=== PATIENT | male | born 1975 | race Caucasian/White ===

== ENCOUNTER 2019-08-27 08:43 | Inpatient (IN) | payer OTHER, SELFPAY ==
[2019-08-27] VITALS (12 sets, daily range): BP systolic 116–209; BP diastolic 79–131; PULSE 69–116; RESP 12–19; TEMP 36.5–37.1; O2SAT 92–98; BMI 37.3
--- NOTE | 2019-08-27 09:05 | XR_ITS ---
WS: [id number] Portable AP upright chest, 08/27/2019 Clinical Data: cp Comparison: PA and lateral chest, 04/22/2013. Findings: No nodules, masses or effusions are seen. The heart is normal. The pulmonary vascularity is not increased. No pneumonia or pneumothorax is seen. There are monitor leads on the chest wall. XR/XR chest 1V portable [id number] Impression: Negative chest.
--- NOTE | 2019-08-27 09:05 | ECG_ITS ---
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 Measurements Intervals [place] Rate: 114 P: 29 [place]: 124 QRS: 3 QRSD: 97 T: 25 QT: 315 QTc: 435 Interpretive Statements SINUS TACHYCARDIA ABNORMAL RHYTHM ECG No previous ECG available for comparison Electronically Signed On 08-28-2019 0:09:16 CDT by Jared Long M.D. [email or web address] Luv Thy Neighbor Outreach Programmerit health madisonK1 [facility].MysteryD/store/NU/[id number] f
[2019-08-27 09:28] LABS: Basophils # 0.1 10^3/uL (0.0-0.1); Basophils % 0.8 %; Eosinophils # 0.1 10^3/uL (0.0-0.8); Eosinophils % 2.2 %; Hematocrit 48.7 % (42.0-52.0); Hemoglobin 16.8 g/dL (11.7-16.6); Lymphocytes # 1.7 10^3/uL (0.8-4.8); Mean Corpuscular HGB Conc 34.5 g/dL (30.0-36.0); Mean Corpuscular Hemoglobin 29.3 pg (28.0-34.0); Mean Corpuscular Volume 84.8 fL (80-94); Mean Platelet Volume 9.1 fL (7.4-10.4); Monocytes # 0.3 10^3/uL (0.2-0.9); Monocytes % 5.3 %; Neutrophils # 4.19 10^3/uL (1.8-7.7); Neutrophils % 65.7 %; Nucleated Red Blood Cells % 0 %; Platelet Count 184 10^3/cmm (130-400); Red Blood Count 5.74 10^6/uL (4.1-5.3); Red Cell Distribution Width 11.7 % (12.1-15.1); White Blood Count 6.4 10^3/uL (4.0-10.0)
[2019-08-27 09:42] LABS: INR 0.89 (0.8-1.2)
[2019-08-27 09:44] LABS: D Dimer <= 0.27 ug/mIFEU (0-0.59)
[2019-08-27 09:49] LABS: Troponin(5th) Baseline 21 ng/L (0-15)
--- NOTE | 2019-08-27 09:52 | W.ED.CHESTPA ---
HPI - Chest Pain General: Chief Complaint: Chest Pain Stated Complaint: sob/cp Time Seen by Provider: 08/27/19 08:55 History of Present Illness: HPI narrative: Patient had an episode of right-sided chest pain that he describes as a heaviness or pressure while getting dressed for work this morning. Slight amount of shortness of breath. He has no nausea or diaphoresis. Pain has resolved. MD complaint: chest pain, chest heaviness and chest discomfort Onset (ago): minute(s) Timing of current episode: now resolved Prior episodes: Yes Onset: during rest Pain location: right chest Pain radiation: none Severity: moderate Quality: tightness and heaviness Relieving factors: nothing Exacerbating factors: nothing Associated symptoms: Reports dyspnea Review of Systems General: Reports: 10 or more systems reviewed and unremarkable except in HPI and below Card: Reports: chest pain Resp: Reports: dyspnea Physical Exam Const: COMMON NORMALS: no acute distress, patient oriented x3, no limitations and alert HENMT: COMMON NORMALS: normocephalic, atraumatic, external ears normal and Normal external nose present HEAD & SCALP: normocephalic and atraumatic FACE & SINUS: normal facial exam NOSE: Normal external nose present EXTERNAL EAR: Yes external ears normal MOUTH: Normal oral and palatal mucosa present Neck/C-Spine: COMMON NORMALS: full ROM, no lymphadenopathy, supple, no meningeal signs and no JVD GENERAL: Yes normal visual inspection Resp: COMMON NORMALS: normal respiratory effort, No retractions, No use of accessory muscles and clear to auscultation bilaterally AUSCULTATION: clear to auscultation bilaterally Cardio: COMMON NORMALS: no JVD, regular rate and regular rhythm RATE: regular rate RHYTHM: regular rhythm GI: COMMON NORMALS: Normal to inspection, nondistended, normoactive bowel sounds present, Soft to palpation, non-tender, No hepatosplenomegaly present and no masses INSPECTION: Yes normal to inspection AUSCULTATION: Yes normoactive bowel sounds PALPATION: Yes Soft to palpation and Yes No hepatosplenomegaly present PERCUSSION: normal to percussion : COMMON NORMALS: Yes no CVA tenderness BLADDER/KIDNEY EXAM: Yes no CVA tenderness Back/Pelvis: COMMON NORMALS: no CVA tenderness, thoracic and lumbar spine normal to inspection, no thoracic nor lumbar tenderness, thoraco-lumbar ROM normal and straight leg raise negative bilaterally Extremity: COMMON NORMALS: normal to inspection, full ROM, capillary refill normal, no joint enlargement, no clubbing, cyanosis or edema, no calf tenderness and no pedal edema Neuro: COMMON NORMALS: patient oriented x3, moves all extremities, no focal motor deficits and no sensory deficits noted SENSORIUM/ORIENTATION: Yes alert MENINGEAL SIGNS: Yes no meningeal signs Psych: COMMON NORMALS: mental status grossly normal, Normal thought process present, cooperative, normal affect and speech normal SPEECH: Yes normal speech THOUGHT PROCESS: Normal thought process present Skin: COMMON NORMALS: no rashes or lesions noted, no wounds, turgor normal, no jaundice, no petechiae and no mottling GENERAL SKIN EXAM: no rashes or lesions noted and turgor normal Course Vital Signs: Vital signs: Vital Signs Temperature 98.8 F 08/27/19 08:51 Pulse Rate 93 08/27/19 12:06 Respiratory Rate 12 08/27/19 12:06 Blood Pressure 116/85 08/27/19 12:06 Pulse Oximetry 94 08/27/19 12:06 MDM - Chest Pain Lab Data: Labs: Lab Results 08/27/19 08/27/19 08/27/19 Range/Units 09:19 09:19 09:19 WBC 6.4 (4.0-10.0) 10^3/ uL RBC 5.74 H (4.1-5.3) 10^6/u L Hgb 16.8 H (11.7-16.6) g/dL Hct 48.7 (42.0-52.0) % MCV 84.8 (80-94) fL MCH 29.3 (28.0-34.0) pg MCHC 34.5 (30.0-36.0) g/dL RDW 11.7 L (12.1-15.1) % Plt Count 184 (130-400) 10^3/c mm MPV 9.1 (7.4-10.4) fL Neut % (Auto) 65.7 % Lymph % (Auto) 26.0 % Mcintosh % (Auto) 5.3 % Eos % (Auto) 2.2 % Baso % (Auto) 0.8 % Neut # (Auto) 4.19 (1.8-7.7) 10^3/u L Lymph # (Auto) 1.7 (0.8-4.8) 10^3/u L Mcintosh # (Auto) 0.3 (0.2-0.9) 10^3/u L Eos # (Auto) 0.1 (0.0-0.8) 10^3/u L Baso # (Auto) 0.1 (0.0-0.1) 10^3/u L Nucleated RBC % (a uto) 0 % Nucleated RBCs # 0.0 /100WBC PT 12.30 (10.5-13.3) SECO NDS INR 0.89 (0.8-1.2) D-Dimer <= 0.27 (0-0.59) ug/mIFE U Sodium 132 L (136-145) mmol/L Potassium 4.2 (3.5-5.1) mmol/L Chloride 96 L (98-107) mmol/L Carbon Dioxide 21 L (22-29) mmol/L Anion Gap 19.2 H (5-19) BUN 13 (6-20) mg/dL Creatinine 0.8 (0.7-1.2) mg/dL GFR Calculation 104.1 (90-130) mL/min Glucose 438 H (65-115) mg/dL Calculated Osmolal ity 289 (285-295) mOsm/k g Calcium 8.9 (8.5-10.5) mg/dL Total Bilirubin 0.9 (0.15-1.2) mg/dL AST 24 (0-40) U/L ALT 52 H (0-41) U/L Alkaline Phosphata se 118 (40-130) IU/L Troponin T Baselin e (0-15) ng/L Troponin T 120 Min [place] (0-15) ng/L NT-Pro-B Natriuret Pep 72 (0-125) pg/mL Total Protein 7.0 (6.6-8.7) g/dL Albumin 4.6 (3.5-5.2) g/dL Globulin 2.4 (1.3-4.6) g/dL 08/27/19 08/27/19 Range/Units 09:19 11:40 WBC (4.0-10.0) 10^3/ uL RBC (4.1-5.3) 10^6/u L Hgb (11.7-16.6) g/dL Hct (42.0-52.0) % MCV (80-94) fL MCH (28.0-34.0) pg MCHC (30.0-36.0) g/dL RDW (12.1-15.1) % Plt Count (130-400) 10^3/c mm MPV (7.4-10.4) fL Neut % (Auto) % Lymph % (Auto) % Mcintosh % (Auto) % Eos % (Auto) % Baso % (Auto) % Neut # (Auto) (1.8-7.7) 10^3/u L Lymph # (Auto) (0.8-4.8) 10^3/u L Mcintosh # (Auto) (0.2-0.9) 10^3/u L Eos # (Auto) (0.0-0.8) 10^3/u L Baso # (Auto) (0.0-0.1) 10^3/u L Nucleated RBC % (a uto) % Nucleated RBCs # /100WBC PT (10.5-13.3) SECO NDS INR (0.8-1.2) D-Dimer (0-0.59) ug/mIFE U Sodium (136-145) mmol/L Potassium (3.5-5.1) mmol/L Chloride (98-107) mmol/L Carbon Dioxide (22-29) mmol/L Anion Gap (5-19) BUN (6-20) mg/dL Creatinine (0.7-1.2) mg/dL GFR Calculation (90-130) mL/min Glucose (65-115) mg/dL Calculated Osmolal ity (285-295) mOsm/k g Calcium (8.5-10.5) mg/dL Total Bilirubin (0.15-1.2) mg/dL AST (0-40) U/L ALT (0-41) U/L Alkaline Phosphata se (40-130) IU/L Troponin T Baselin e 21 H (0-15) ng/L Troponin T 120 Min [place] 28.26 H (0-15) ng/L NT-Pro-B Natriuret Pep (0-125) pg/mL Total Protein (6.6-8.7) g/dL Albumin (3.5-5.2) g/dL Globulin (1.3-4.6) g/dL Discharge Plan Discharge Prescriptions: No Action glipizide 10 mg Tablet 10 mg PO DAILY RF: 0 citalopram 20 mg Tablet 20 mg PO DAILY RF: 0 metformin 1,000 mg Tablet 1,000 mg PO BID RF: 0 losartan 25 mg Tablet 25 mg PO DAILY RF: 0 pravastatin 20 mg Tablet 20 mg PO BEDTIME RF: 0 gabapentin 100 mg Capsule 100 mg PO TID RF: 0 Victoza 2-Richard 0.6 mg/0.1 mL (18 mg/3 mL) Pen Injector 1.8 mg SUBCUT DAILY RF: 0 Tresiba FlexTouch U-100 100 unit/mL (3 mL) Insulin Pen 70 unit SUBCUT DAILY RF: 0 Coding Level of Care Code ED Alternative Dispute Resolution Mediator for [facility] Fwd Exam Comprehensive
[2019-08-27] MEDS: labetalol 5 mg/mL SDV 20mL 10 MG IVP (09:58)
[2019-08-27 09:59] LABS: Alanine Aminotransferase 52 U/L (0-41); Albumin Level 4.6 g/dL (3.5-5.2); Alkaline Phosphatase 118 IU/L (40-130); Anion Gap 19.2 (5-19); Aspartate Amino Transferase 24 U/L (0-40); Blood Urea Nitrogen 13 mg/dL (6-20); Calcium 8.9 mg/dL (8.5-10.5); Carbon Dioxide 21 mmol/L (22-29); Chloride 96 mmol/L (98-107); Creatinine Clr Calc Pharmacy 148.4639; Globulin 2.4 g/dL (1.3-4.6); Glomerular Filtration Rate 104.1 mL/min (90-130); Glucose 438 mg/dL (65-115); NT Pro B Type Natriuretic Pept 72 pg/mL (0-125); Osmolality Calculated 289 mOsm/kg (285-295); Potassium 4.2 mmol/L (3.5-5.1); Sodium 132 mmol/L (136-145); Total Bilirubin 0.9 mg/dL (0.15-1.2)
--- NOTE | 2019-08-27 11:05 | ECG_ITS ---
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 Measurements Intervals [place] Rate: 94 P: 29 [place]: 146 QRS: 3 QRSD: 98 T: 19 QT: 334 QTc: 418 Interpretive Statements SINUS RHYTHM Compared to ECG 08/27/2019 09:03:08 Sinus tachycardia no longer present Electronically Signed On 08-28-2019 1:37:48 CDT by Jared Long M.D. [email or web address].Applausemagee general hospitalBeatpackingcenterville.[employer]/store/OM/[id number]/[id number]
--- NOTE | 2019-08-27 11:23 | PC.NURSE ---
EKG done at 1120 and shown to ER doctor
[2019-08-27 12:03] LABS: Troponin 5 2HR 28.26 ng/L (0-15); Troponin 5 2HR Delta 7.26 ABS# (0-10)
--- NOTE | 2019-08-27 14:44 | PC.NURSE ---
Patient arrived to room at 1315 from ER. Patient ambulated independently to bed from wheelchair. Patient denies chest pain or SOB. IV in left wrist placed by ER. Patient does not have any requests at this time. Nurse to continue to monitor.
--- NOTE | 2019-08-27 15:05 | ECG_ITS ---
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 Measurements Intervals [place] Rate: 97 P: 27 [place]: 145 QRS: -1 QRSD: 89 T: 9 QT: 334 QTc: 425 Interpretive Statements SINUS RHYTHM POSSIBLE INFERIOR MYOCARDIAL INFARCTION [30 ms Q WAVE IN II/aVF], PROBABLY OLD Compared to ECG 08/27/2019 11:28:57 Myocardial infarct finding now present Electronically Signed On 08-28-2019 1:39:05 CDT by Jared Long M.D. [id number]
[2019-08-27 17:33] LABS: Glucose Point of Care 210 mg/dL (70-110)
--- NOTE | 2019-08-27 18:18 | PM.HP ---
Providers/Chief Complaint Admitting Physician: Nova Tolentino MD Primary Care Provider: Kaye Mercado MD Chief Complaint: sob/cp History of Present Illness Ortega Levi is a 44 year old male with PMH DM, HLD, HTN who presented today to the Er with c/o right sided chest discomfort that happened at work this morning, described as dull aching pain that started suddenly at rest, about 4/10 at maximum intensity for which he presented to the ER. Pain subsidded spontaneously, however he presented to ER at the urging of his co workers. At time of presentation, his BP was noted to be 209 SBP for which he received iv labetalol in the ER, he is currently at 130/84mmHG. Reports having similar episodes twice in the past over th past 6 months, for which he did seek any specific care. Diagnostics in the ER show EKG with sinus tachycardia, without any acute ST-T wave changes, 2 hr troponin delta of 7 with mild elevation of troponin. Second 6 hr delta at 24. He remains chest pain free at this time. reports some dyspnea at time of pain, however this is completely gone. He is maintaining 02 saturation on RA since arrival. No current shortness of breath. No h/o orthopnea or PND. No past h/o stress test. He is extremely anxious as he was under the impression he is going to have surgery tomorrow (did not undrstand the term stress test). D dimer is negative. Review of Systems General: Reports: 10 or more systems reviewed and unremarkable except in HPI and below Const: Denies: fever(s), chills or body aches Eyes: Denies: change in vision, blurry vision or photophobia ENMT: Denies: throat pain, enlarged tonsils, odynophagia, hoarseness or nasal congestion Card: Denies: chest pain, palpitations, irregular heart rhythm, edema, swelling of feet/ankles, lightheadedness, pre-syncope, dyspnea on exertion or orthopnea Resp: Denies: dyspnea, productive cough, non-productive cough, wheezing, stridor, pain on inspiration, change in phlegm color, hemoptysis or chest congestion GI: Denies: abdominal pain, nausea, vomiting, hematemesis, coffee ground emesis, dysphagia, heartburn, diarrhea, constipation, GI cramping, change in stool character, hematochezia or melena : Denies: flank pain, dysuria, urinary frequency, urinary urgency, urinary hesitancy or hematuria Musc: Denies: neck pain, back pain, extremity pain, joint swelling, joint warmth or deformity Neuro: Denies: headache(s), numbness in extremities, weakness in extremities, sensory changes, difficulty walking, frequent falls, dizziness, vertigo, behavioral changes, Slurred speech present or seizure-like activity Psych: Denies: anxiety, depression, suicidal ideation or homicidal ideation Endo: Denies: polyuria, polydipsia, tired all the time, cold intolerance or hot flashes Eliezer/Lymph: Denies: easy bruising or easy bleeding Medications/Allergies Home Medications Medication Instructions Recorded Confirmed Last Taken Type citalopram 20 mg PO DAILY 08/27/19 08/27/19 08/27/19 History gabapentin 100 mg PO TID 08/27/19 08/27/19 08/27/19 History glipizide 10 mg PO DAILY 08/27/19 08/27/19 08/27/19 History insulin degludec [Tresiba 70 unit SUBCUT DAILY 08/27/19 08/27/19 08/27/19 History FlexTouch U-100] liraglutide [Victoza 2-Richard] 1.8 mg SUBCUT DAILY 08/27/19 08/27/19 08/27/19 History losartan 25 mg PO DAILY 08/27/19 08/27/19 08/27/19 History metformin 1,000 mg PO BID 08/27/19 08/27/19 08/27/19 History pravastatin 20 mg PO BEDTIME 08/27/19 08/27/19 08/26/19 History Allergies Allergy/AdvReac Type Severity Reaction Status Date / Time No Known Allergies Allergy Verified 08/27/19 09:05 PFSH Acute PFSH: Medical History (Updated 08/27/19 @ 18:35 by Nova Tolentino MD) Diabetes mellitus Hypertension Vitals/I&O/Wt Last Vital Signs Temp 98.8 F 08/27/19 08:51 Pulse 104 H 08/27/19 14:49 Resp 15 08/27/19 13:17 BP 135/89 08/27/19 13:17 Pulse Ox 95 08/27/19 14:49 Weight last 48 hrs Weight 117.934 kg Physical Exam Narrative: EXAM NARRATIVE: GEN: Awake, alert and oriented, no acute distress CVS: S1S2 N RS: CTA B/L Abd: Soft, nt/nd , bs+ SALES CONSULTANT: no focal neuro deficits Data : 08/27/19 09:19 07 09:19 A&P Assessment and plan (1) Chest pain: Status: Acute Qualifiers: Chest pain type: unspecified Qualified Code(s): R07.9 - Chest pain, unspecified (2) Hypertension: Status: Acute Qualifiers: Hypertension type: essential hypertension Qualified Code(s): I10 - Essential (primary) hypertension (3) Diabetes mellitus: Status: Acute Qualifiers: Diabetes mellitus type: type 2 Diabetes mellitus care home insulin use: with track announcer use Diabetes mellitus complication status: without complication Qualified Code(s): E11.9 - Type 2 diabetes mellitus without complications; Z79.4 - senior living (current) use of insulin Additional A&P Information Admit to CSU in observation - EKG without acute changes, Troponins mildly elevated with rising delta Patient overall clinically well appearing without acute distress at this tejal e Chest pain has not recurred since this morning Could be consistent with unstable angina Stress test in morning Keep NPO will check another troponin in 6 hrs for trend BP currently controlled after labetalol in the ER, continue home dose of losartan, patient states missing this medication over last 2 days insulin sliding scale Continue statins, start aspirin Full code DVT ppx: lovenox Attestations Medical Necessity Statement*: evaluation of chest pain, likely unstable angina Coding Level of Care Code Acute 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
[2019-08-27] MEDS: aspirin 81 mg EC Tablet PO (18:55)
[2019-08-27] MEDS: enoxaparin 40 mg/0.4 mL Syringe SUBCUT (19:00)
[2019-08-27 20:26] LABS: Thyroid Stimulating Hormone 1.52 uIU/mL (0.27-4.20)
[2019-08-27 20:28] LABS: Glucose Point of Care 226 mg/dL (70-110)
[2019-08-27] MEDS: gabapentin 100 mg Capsule PO (20:28)
[2019-08-27] MEDS: atorvastatin 40 mg Tablet 20 MG PO (20:29)
[2019-08-28] VITALS (10 sets, daily range): BP systolic 120–162; BP diastolic 84–107; PULSE 72–106; RESP 15–88; TEMP 36.5–36.9; O2SAT 93–98
[2019-08-28 00:14] LABS: Troponin T (5th) Once 88 ng/L (0-15)
[2019-08-28 06:15] LABS: Glucose Point of Care 242 mg/dL (70-110)
--- NOTE | 2019-08-28 06:19 | ECG_ITS ---
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 Interpretive Statements NAME OF STUDY: LEXISCAN SESTAMIBI STRESS TEST INDICATION: Chest Pain NOTE: Please note that this is the electrocardiogram portion of the Lexiscan/Sestamibi stress test. The perfusion scan will be documented separately. DATA: Baseline heart rate was 94 beats per minute. Baseline blood pressure was 151/93 millimeters of mercury. Target heart rate was 174. Maximum heart rate achieved was 127. which was 72 % of the predicted target heart rate. Maximum blood pressure was 159/93 millimeters of mercury. The reason for ending the test was completion of the protocol. The patient did not experience any symptoms. ELECTROCARDIOGRAM: BASELINE: Sinus rhythm. Normal axis. Otherwise, no ST-T changes suggestive of ischemia noted. No arrhythmia noted. EXERCISE: After Lexiscan injection, no ST-T changes suggestive of ischemic noted. No arrhythmia noted. CONCLUSION: Please note due to baseline abnormality of the EKG specificity and sensitivity of the EKG portion of LexiScan MIBI stress test will be low 1. EKG not suggestive of ischemia 2. Lexiscan injection unremarkable. 3. Perfusion scan will be documented separately. Electronically Signed On 09-07-2019 23:47:06 CDT by Garett Lopez M.D. https://[employer] [employer] [facility].DediServe/store/OM/[id number]/[id number]
--- NOTE | 2019-08-28 08:38 | SUR.PREOP ---
Patient reports no pain or discomfort prior to the start of the procedure.
[2019-08-28] MEDS: regadenoson 0.4 Mg/5 ml Syringe IVP (08:41)
--- NOTE | 2019-08-28 10:00 | PC.NURSE ---
Patient returned from stress test. Patient denies any CP or SOB. VS assessed. BP elevated. Morning dose of losartan to be administered. Nurse to continue to monitor.
--- NOTE | 2019-08-28 10:06 | PC.CHAP ---
Pastoral Care Encounter/Spiritual Assessment Type of Contact [] Declined emergency planning and response manager visit [] Patient/Family/Request visit [] Outpatient visit [] Follow-up visit [] Physician referral [] Code/Alert [x] Routine visit [] Staff referral [] Actively dying [] Patient sleeping [] Family support [] [x] Out of room [] Palliative care [] [] Receiving care in room [] Pre-surgical visit [] Trauma [] Long length of stay [] ICU visit [] Other: Relational/Emotional Strength [] Patient feels connected with others/family/visitors/staff [] Distress [] Loneliness/isolation [] Abandonment Spirituality of Patient [] Person of Kyra [] Attends Anglican of their Kyra [] Believes in Prayer [] Reads Bible or Amish materials [] There are Spiritual issues to be addressed Attorney General Interventions [] Prayer [] Active listening [] Non-anxious presence [] Spiritual/emotional support [] Crisis/trauma care [] Spiritual counseling [] Bereavement support [] Provided bereavement packet [] Provided Bible/devotional materials [] Provided toy/stuffed animal, coloring book to patient or family member [] Provided Communion [] Anointing/[place] [] Salvation [] Completed spiritual assessment [] Other: Impact on Illness or Injury [] Angry [] Fearful [] Anxious [] Often cries [] Exhaustion [] Unable to work [] Unable to attend confucianism [] Unable to walk/stand [] Unable to read [] Unable to drive [] Unable to eat/drink [] Unable to sleep [] Unable to be with family [] Patient intubated [] Other: Summary Time spent with patient
[2019-08-28] MEDS: aspirin 81 mg EC Tablet PO (10:11)
[2019-08-28] MEDS: pantoprazole DR 40 mg Tablet PO (10:11)
[2019-08-28] MEDS: citalopram 20 mg Tablet PO (10:12)
[2019-08-28] MEDS: losartan 50 mg Tablet 25 MG PO (10:12)
[2019-08-28] MEDS: gabapentin 100 mg Capsule PO ×3 (10:13→20:35)
--- NOTE | 2019-08-28 11:19 | PC.NURSE ---
Physician notification Dr. Tolentino updated that patient nuc med report has resulted. Physician to review results and contact cardiology. Nurse also informed physician that patient BP is still elevated after receiving losartan. Patient appears to be anxious about test results. Physician gave telephone order to administer xanax 0.25 mg PO one time, RBVO.
--- NOTE | 2019-08-28 11:22 | PC.NURSE ---
Dr. Tolentino at bedside discussing plan of care with patient.
--- NOTE | 2019-08-28 11:29 | USCV_ITS ---
Ortega Levi Age: 44 Gender: M : 1975 Exam Date: 08/28/2019 15:15 Ordering Phys: Nova Tolentino MD Technologist: Donald Patel Exam Location: [facility] [place] Indication: CHEST PAIN BP: 161 / 101 HR: 97 Rhythm: Sinus Technical Quality: Very poor MEASUREMENTS (Male / Female) Normal Values 2D ECHO LV Diastolic Diameter PLAX 3.5 cm 4.2 - 5.9 / 3.9 - 5.3 cm LV Systolic Diameter PLAX 2.0 cm IVS Diastolic Thickness 1.2 cm 0.6 - 1.0 / 0.6 - 0.9 cm IVS Systolic Thickness 1.8 cm LVPW Diastolic Thickness 1.6 cm 0.6 - 1.0 / 0.6 - 0.9 cm LVPW Systolic Thickness 1.6 cm LVOT Diameter 2.4 cm LV Ejection Fraction 2D Teich 74.9 % LA Diameter 4.3 cm LA Width 3.4 cm LA Height 4.7 cm RA Width 2.5 cm RA Height 5.4 cm M-MODE LV Diastolic Diameter MM 4.4 cm 4.2 - 5.9 / 3.9 - 5.3 cm LV Systolic Diameter MM 2.8 cm LV Ejection Fraction MM Teich 67.1 % IVS Diastolic Thickness MM 1.3 cm 0.6 - 1.0 / 0.6 - 0.9 cm IVS Systolic Thickness MM 1.5 cm LVPW Diastolic Thickness MM 1.2 cm 0.6 - 1.0 / 0.6 - 0.9 cm LVPW Systolic Thickness MM 1.9 cm RV Diastolic Diameter MM 1.3 cm Aortic Annulus Diameter 3.8 cm LA Ao Ratio MM 1.1 MV E Point Septal Separation 1.3 cm DOPPLER AV Peak Velocity 113.0 cm/s LVOT Peak Velocity 69.0 cm/s AV Area Cont Eq vti 2.8 cm squared AV Area Cont Eq pk 2.8 cm squared MV Area PHT 5.0 cm squared Mitral E to A Ratio 0.7 MV E' Velocity 50.0 cm/s Mitral E to LV E' Septal Ratio 12.6 TR Peak Velocity 175.0 cm/s TR Peak Gradient 12.2 mmHg Right Atrial Pressure 3.0 mmHg Pulmonary Artery Systolic Pressu 15.3 mmHg FINDINGS Left Ventricle Normal left ventricular cavity size. Mildly decreased left ventricular systolic function. Left ventricular ejection fraction is estimated at 50 %. There appeared to be mid to distal anterior septal wall hypokinesis.Grade I/IV diastolic dysfunction (abnormal relaxation filling pattern), normal to mildly elevated filling pressures. Right Ventricle The right ventricle is normal in size and function. Right Atrium The right atrium is normal in size. Left Atrium The left atrium is normal in size. Mitral Valve Structurally normal mitral valve without significant stenosis or prolapse. There is no mitral regurgitation. Aortic Valve Aortic valve sclerosis without stenosis or regurgitation. Tricuspid Valve Structurally normal tricuspid valve without significant stenosis or regurgitation. Pulmonary artery systolic pressure is normal. Pulmonic Valve Structurally normal pulmonic valve without significant stenosis. There is no pulmonic regurgitation. Pericardium Normal pericardium without effusion. Aorta Normal ascending aorta dimension. CONCLUSIONS 1-Normal left ventricular cavity size. Mildly decreased left ventricular systolic function. Left ventricular ejection fraction is estimated at 50 %. There appeared to be mid to distal anterior septal wall hypokinesis.Grade I/IV diastolic dysfunction (abnormal relaxation filling pattern), normal to mildly elevated filling pressures. 2-Aortic valve sclerosis without stenosis or regurgitation. 3-Pulmonary artery systolic pressure is within normal limits. 4-There is no pericardial effusion. 5-There are no prior echocardiogram studies to compare. Garett Lopez MD (Electronically Signed) Final Date: 29 August 2019 20:29 S
--- NOTE | 2019-08-28 11:30 | ECG_ITS ---
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 Measurements Intervals [place] Rate: 77 P: 30 DE: 152 QRS: 12 QRSD: 93 T: 29 QT: 345 QTc: 392 Interpretive Statements SINUS RHYTHM Compared to ECG 08/27/2019 15:06:34 Myocardial infarct finding no longer present Electronically Signed On 08-28-2019 23:33:28 CDT by Jared Long M.D. [email or web address].[facility].CoolaData/store/OM/[id number]
[2019-08-28 11:32] LABS: Glucose Point of Care 231 mg/dL (70-110)
[2019-08-28] MEDS: ALPRAZolam 0.25 mg Tablet PO ×2 (11:32→21:45)
--- NOTE | 2019-08-28 11:32 | P.PN_ITS ---
Subjective Subjective: Interval history: Patient has remained chest pain free, s/p stress test this am, uneventful overall, however results noted to be abnormal. No c/o dyspnea, states he feels just fine Medications: Reviewed: Yes Vitals/I&O/Wt Last Vital Signs Temp 97.9 F 08/28/19 10:05 Pulse 75 08/28/19 11:18 Resp 25 H 08/28/19 11:18 BP 140/104 08/28/19 11:18 Pulse Ox 95 08/28/19 11:18 08/27/19 08/28/19 08/28/19 22:59 06:59 14:59 Intake Total 240 / 240 480 / 720 480 / 480 Balance 240 / 240 480 / 720 480 / 480 Weight last 48 hrs Weight 117.934 kg Physical Exam Narrative: EXAM NARRATIVE: GEN: Awake, alert and oriented, no acute distress CVS: S1S2 N RS: CTA B/L Abd: Soft, nt/nd , bs+ WIND SCIENCE AND PLANNING: no focal neuro deficits Data : 08/27/19 09:19 08/27/19 09:19 A&P Assessment and plan (1) Hypertension: Status: Acute Qualifiers: Hypertension type: essential hypertension Qualified Code(s): I10 - Essential (primary) hypertension (2) Diabetes mellitus: Status: Acute Qualifiers: Diabetes mellitus type: type 2 Diabetes mellitus [facility] insulin use: with intermediate project manager use Diabetes mellitus complication status: without complication Qualified Code(s): E11.9 - Type 2 diabetes mellitus without complications; Z79.4 - care home (current) use of insulin (3) NSTEMI (non-ST elevated myocardial infarction): Status: Acute Additional A&P Information Continue CSU level of care 1. NSTEMI: -Serial troponins with rising delta of 7 and 24 last night -Patient remains chest pain free since yesetrday morning, no dyspnea -Stress test this morning noted to be abnormal with Small area of mid fixed perfusion defect surrounded by large area of severe reversibility noted in basal to distal anterior anteroseptal wall suggestive of small area for myocardial infarction surrounded by large area of kelsey-infarct ischemia most likely involving LAD territory. Also likely RCA involvement. - Above findings discussed with Dr. Lopez- next step is to proceed with an angiogram - in the interim, start patient on therapeutic dose lovenox 1mg/kg q12h - plavix load 300mg now- discussed with Dr. Lopez - Continue ASA 81mg qd - start toprol XL 12.5g qd - start imdur 15mg po qd , incrase as tolerated by BP - Received losartan today, hold tomorrow for angiogram and anticipated contrast load. - echocardiogram -increase atorvastatin to 80 mg qd - change to inpatient status - continue NPO for now until cardiology evaluation 2. DM: Currently on high dose sliding scale 3. HTN: hold losartan tomorrow, added toprol and imdur today, will titrate meds based on BP response Full code DVT ppx: lovenox Attestations Medical Necessity Statement*: NSTEMI, abnormal stress test, needs cardiac cath Coding Level of Care Code Acute Information Systems Security Manager for g Fwd Diagnoses Hypertension I10 Hypertension type: essential hypertension Diabetes mellitus E11.9; Z79.4 Diabetes mellitus type: type 2 Diabetes mellitus [facility] insulin use: with intermediate project manager use Diabetes mellitus complication status: without complication NSTEMI (non-ST elevated myocardial infarction) I21.4
[2019-08-28] MEDS: metoprolol succinate ER (24 HR) 25 mg Tablet 12.5 MG PO (12:02)
[2019-08-28] MEDS: isosorbide mononitrate ER 30 mg Tablet 15 MG PO (12:03)
[2019-08-28] MEDS: clopidogrel 300 mg Tablet PO (12:03)
[2019-08-28] MEDS: enoxaparin 120 mg/0.8 mL Syringe SUBCUT (12:06)
--- NOTE | 2019-08-28 16:09 | P.CONIM_ITS ---
Providers/Reason For Consult Consulting Physican/Specialty*: Cardiology Reason for Consult*: Suspecting angina with chest pain/Abnormal stress test Requesting Physcian: Dr. Tolentino Attending Physician: Nova Tolentino MD Primary Care Provider: Kaye Mercado MD History of Present Illness History of Present Illness Ortega Levi is a 44 year old male past medical history significant for hypertension, hyperlipidemia uncontrolled diabetes mellitus strong family history of premature coronary artery disease for worsening of chest pain shortness of breath fatigue he was admitted yesterday and ruled out for acute coronary syndrome. Stress test was performed which showed large area of severe ischemia in LAD and small area of distal RCA. It is the reason we have been asked to come and see him. According to the patient for the past 7 or 8-month he has been struggling with shortness of breath and chest pressure from time to time now over the period of last one week it has become more consistent or worsen. Yesterday he felt chest pain at a moderate intensity since it was not going away he decided to come to ER. Twelve-lead EKG initial cardiac markers were not suggestive of acute coronary syndrome this morning he underwent stress test which turns out to be positive. Review of Systems General: Reports: 10 or more systems reviewed and unremarkable except in HPI and below Const: Denies: fever(s), chills or body aches Eyes: Denies: change in vision, blurry vision or photophobia ENMT: Denies: throat pain, enlarged tonsils, odynophagia, hoarseness or nasal congestion Card: Denies: chest pain, palpitations, irregular heart rhythm, edema, swelling of feet/ankles, lightheadedness, pre-syncope, dyspnea on exertion or orthopnea Resp: Denies: dyspnea, productive cough, non-productive cough, wheezing, stridor, pain on inspiration, change in phlegm color, hemoptysis or chest congestion GI: Denies: abdominal pain, nausea, vomiting, hematemesis, coffee ground emesis, dysphagia, heartburn, diarrhea, constipation, GI cramping, change in stool character, hematochezia or melena : Denies: flank pain, dysuria, urinary frequency, urinary urgency, urinary hesitancy or hematuria Musc: Denies: neck pain, back pain, extremity pain, joint swelling, joint warmth or deformity Neuro: Denies: headache(s), numbness in extremities, weakness in extremities, sensory changes, difficulty walking, frequent falls, dizziness, vertigo, behavioral changes, Slurred speech present or seizure-like activity Psych: Denies: anxiety, depression, suicidal ideation or homicidal ideation Endo: Denies: polyuria, polydipsia, tired all the time, cold intolerance or hot flashes Eliezer/Lymph: Denies: easy bruising or easy bleeding Meds/Allergies Home Medications and Allergies Home Medications Medication Instructions Recorded Confirmed Last Taken Type citalopram 20 mg PO DAILY 08/27/19 08/27/19 08/27/19 History gabapentin 100 mg PO TID 08/27/19 08/27/19 08/27/19 History glipizide 10 mg PO DAILY 08/27/19 08/27/19 08/27/19 History insulin degludec [Tresiba 70 unit SUBCUT DAILY 08/27/19 08/27/19 08/27/19 History FlexTouch U-100] liraglutide [Victoza 2-Richard] 1.8 mg SUBCUT DAILY 08/27/19 08/27/19 08/27/19 History losartan 25 mg PO DAILY 08/27/19 08/27/19 08/27/19 History metformin 1,000 mg PO BID 08/27/19 08/27/19 08/27/19 History pravastatin 20 mg PO BEDTIME 08/27/19 08/27/19 08/26/19 History Allergies Allergy/AdvReac Type Severity Reaction Status Date / Time No Known Allergies Allergy Verified 08/27/19 09:05 Current Medications Current Medications Generic Name Dose Route Start Last Admin Trade Name Valerie PRN Reason Stop Dose Admin Aspirin 81 mg 08/27/19 19:00 08/28/19 10:11 Aspirin Ec PO 81 mg DAILY KELLY Administration Citalopram Hydrobromide 20 mg 08/28/19 09:00 08/28/19 10:12 Celexa PO 20 mg DAILY KELLY Administration Enoxaparin Sodium 120 mg 08/28/19 13:00 08/28/19 12:06 Lovenox SUBCUT 120 mg Q12H KELLY Administration Gabapentin 100 mg 08/27/19 21:00 08/28/19 15:28 Neurontin PO 100 mg TID KELLY Administration Insulin Aspart 0 unit 08/27/19 21:00 08/28/19 11:33 Novolog SUBCUT Not Given WM&BEDTIME KELLY Protocol Isosorbide Mononitrate 15 mg 08/28/19 11:45 08/28/19 12:03 Imdur PO 15 mg DAILY KELLY Administration Losartan Potassium 25 mg 08/28/19 09:00 08/28/19 10:12 Cozaar PO 25 mg DAILY KELLY Administration Metoprolol Succinate 12.5 mg 08/28/19 12:00 08/28/19 12:02 Toprol Xl PO 12.5 mg DAILY KELLY Administration Pantoprazole Sodium 40 mg 08/28/19 09:00 08/28/19 10:11 Protonix PO 40 mg DAILY KELLY Administration PFSH Acute PFSH: Medical History Diabetes mellitus Hypertension Vitals/I&O/Wt Last Vital Signs Temp 97.9 F 08/28/19 10:05 Pulse 75 08/28/19 11:18 Resp 25 H 08/28/19 11:18 BP 140/104 08/28/19 11:18 Pulse Ox 95 08/28/19 11:18 08/28/19 08/28/19 08/28/19 06:59 14:59 22:59 Intake Total 480 / 720 480 / 480 Balance 480 / 720 480 / 480 Weight last 48 hrs Weight 260 lb Physical Exam Narrative: EXAM NARRATIVE: GENERAL: Patient is alert, awake and oriented x3. NECK: No jugular vein distension. HEENT: No cyanosis. No icterus. No pallor. HEART: Regular S1 and S2. No murmur, rub or gallop. LUNGS: Clear to auscultate bilaterally. ABDOMEN: Soft, nontender and nondistended. Positive bowel sounds. No guarding, rebound or tenderness. CENTRAL NERVOUS SYSTEM: Grossly nonfocal. EXTREMITIES: Lower extremities without edema bilaterally. A&P Assessment and plan (1) Chest pain: Chest pain is suspicious for angina. He is high risk for acute coronary syndrome. Since he has a positive stress test we will control his blood sugar and proceed with coronary angiogram tomorrow. Patient has been explained all risk benefit and alternative for the procedure. He understands risk of emergent CABG, bleeding, arrhythmia, , stroke and pericardial effusion. Status: Acute Qualifiers: Chest pain type: unspecified Qualified Code(s): R07.9 - Chest pain, unspecified (2) Hypertension: Not well controlled we will optimize medicine Status: Acute Qualifiers: Hypertension type: essential hypertension Qualified Code(s): I10 - Essential (primary) hypertension (3) Diabetes mellitus: Not well controlled he is on sliding scale insulin and medicine is trying to optimize his blood sugar Status: Acute Qualifiers: Diabetes mellitus type: type 2 Diabetes mellitus [facility] insulin use: with terminal gauger supervisor use Diabetes mellitus complication status: without complication Qualified Code(s): E11.9 - Type 2 diabetes mellitus without complications; 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 We will proceed with angiogram tomorrow for risk stratification and treatment if indicated. Status: Acute Consult Attestations Medical Necessity Statement: I am expecting his stay to cross more than 2 midnights Coding Level of Care Code New Pt Acute Heading And Priming Tool Setter for [facility] Patient Type New History Detailed Exam Detailed Medical Decision Making Moderate Complexity Diagnoses Chest pain R07.9 Chest pain type: unspecified Hypertension I10 Hypertension type: essential hypertension Diabetes mellitus E11.9; Z79.4 Diabetes mellitus type: type 2 Diabetes mellitus [facility] insulin use: with terminal gauger supervisor use Diabetes mellitus complication status: without complication Abnormal nuclear stress test R94.39
[2019-08-28 16:51] LABS: Glucose Point of Care 215 mg/dL (70-110)
--- NOTE | 2019-08-28 18:16 | NMCV_ITS ---
NM han perf SPECT r/s* [id number] Amita Ortega Age: 44 Gender: M : 1975 Exam Date: 08/28/2019 18:16 Ordering Phys: Nova Tolentino MD Technologist: CHEL Alcala Exam Location: [facility] Indications: Chest pain STRESS TEST Please see separate stress test report in [facility] for full findings IMAGE PROTOCOL Rest/Stress 1 Lexiscan Day Radiopharmaceutical Dose (mCi) Administration Site Administered by Rest: Tc-99m 10.9 IV CHEL Alcala Sestamibi Stress:Tc-99m 32.9 IV CHEL Alcala Sestamibi Rest: 28-Aug-2019 60 Discovery 630 Stress: 28-Aug-2019 45 Discovery 630 0.4mg Lexiscan. Images obtained in supine and prone position. SPECT RESULTS Technical Quality: Good Raw Data Analysis: Normal Image Corrections: No attenuation or motion correction [id number] Summed Stress Score: 24 Summed Rest Score: 6 Summed Difference Score: 18 PERFUSION FINDINGS Small area of mid fixed perfusion defect surrounded by large area of severe reversibility noted in basal to distal anterior anteroseptal wall suggestive of small area for myocardial infarction surrounded by large area of kelsey-infarct ischemia most likely involving LAD territory. Medium-sized area of patchy decreased tracer uptake surrounded by moderate to severe reversibility noted in basal to distal inferior wall suggestive of old myocardial infarction surrounded by severe kelsey-infarct ischemia in the RCA territory. Please note that since patient was not able to perform the prone images therefore cannot rule out artifact however presentation is consistent with severe LAD and RCA disease. FUNCTIONAL RESULTS (calculated via Gated SPECT) Stress Image LV EF (%): 50 Stress EDV (mL):72 TID: 1 Stress ESV (mL):36 Rest Image LV EF (%): 50 FUNCTIONAL FINDINGS: Anterior/anteroseptal wall hypokinesis mid to distal inferior wall hypokinesis. Mildly depressed LV function IMPRESSIONS Small area of mid fixed perfusion defect surrounded by large area of severe reversibility noted in basal to distal anterior anteroseptal wall suggestive of small area for myocardial infarction surrounded by large area of kelsey-infarct ischemia most likely involving LAD territory. Medium-sized area of patchy decreased tracer uptake surrounded by moderate to severe reversibility noted in basal to distal inferior wall suggestive of old myocardial infarction surrounded by severe kelsey-infarct ischemia in the RCA territory. Please note that since patient was not able to perform the prone images therefore cannot rule out artifact however presentation is consistent with severe LAD and RCA disease. This is a positive stress test. EKG will be documented separately. Garett Lopez MD (Electronically Signed) Final Date: 28 August 2019 10:44 S
[2019-08-28 20:25] LABS: Glucose Point of Care 291 mg/dL (70-110)
[2019-08-28] MEDS: atorvastatin 40 mg Tablet 80 MG PO (20:34)
[2019-08-29] VITALS (54 sets, daily range): BP systolic 108–144; BP diastolic 73–96; PULSE 72–94; RESP 4–29; TEMP 36.6–36.8; O2SAT 89–100
[2019-08-29] MEDS: enoxaparin 120 mg/0.8 mL Syringe SUBCUT (00:01)
[2019-08-29 06:45] LABS: Glucose Point of Care 237 mg/dL (70-110)
[2019-08-29] MEDS: sodium chloride 0.9% 1,000 ML 50 ML IV (08:56)
--- NOTE | 2019-08-29 09:09 | XACV_ITS ---
Exam Room: [facility] Ht: 152 cm Wt: 118 kg BSA: 2.31 m2 Gender: Male : 1975 Any Known Allergies: No known allergies Exam Priority: Routine Procedure(s): Procedure Description: Diagnostic procedure Procedure Description: PCI procedure Procedure Description: Drug Eluting Coronary Stent Procedure Description: PTCA Procedure Description: Coronary Angiography Diagnostic Cath Status: Elective Diagnostic Findings LM has 0% stenosis. CX has 0% stenosis. RCA has 0% stenosis. Mid Left Anterior Descending Coronary Artery: Severe 90% stenosis, ISAIAH: 3 flow. 1st Diag: Moderate 50% stenosis, ISAIAH: 3 flow. Coronary angiography shows right dominance. PCI Status: Urgent PCI Indication: NSTE - ACS Interventional Findings Mid Left Anterior Descending Coronary Artery: 90% stenosis treated with AB TREK 2.50X8 RX BALLOON, MALI Boyd SLADE 3.0X8 CELESTINE, and MDT LLUVIA EUPHORA RX [id number] BALLOON. 0% residual stenosis, ISAIAH: 3 flow. Conclusions There is severe coronary artery disease with one vessel disease. Mid Left Anterior Descending Coronary Artery was treated with two Balloon and Drug Eluting Stent. Recommendations 1-Return to inpatient for close monitoring and routine cath care 2-Risk factor modification for secondary prevention 3-Statin with LDL goal <70 mg/dl, aspirin 81 mg life-long 4-Patient was pre-loaded with 180mg of Brillinta. Continue Brillinta 90mg p.o. twice daily for at least one year. We will assess at the end of one year again to continue it further or not 5-Continue optimal medical management 6-Follow up with Dr. Lopez in four weeks and with your PCP in one week . Interventional RX Recommendation: PCI w/o planned CABG Diagnostic RX Recommendation: PCI w/o planned CABG Pressures Phase:Rest AO : 120 mmHg / 81 mmHg ( 100 mmHg ) @ 7:07:00 AM LV : 147 mmHg / -23 mmHg / @ 6:25:00 AM 126 mmHg / 51 mmHg / @ 6:26:00 AM Clinical Evaluation EBL: 5mL-10mL Procedural Details Procedure Consent Obtained. Pre-Procedure Time Out. Identified patient by full name and date of as verbalized by the patient/guarantor. Does the consent match the physician's order: Yes. Accurate & Complete Informed Consent: Yes. Inpatient/Outpatient History & Physical on Chart: Yes. If H&P is completed, is and addenduem needed: No; If yes, is the addendum complete: N/A. Visualize and Verify Site with Patient/Guarantor: N/A. Relevant Radiology Images available: Yes. Pre-op teaching completed and patient verbalized understanding. The risks, benefits, and alternatives of sedation and/or procedure were discussed by physician. The patient agrees to continue. Procedure started. Correct patient, site and procedure confirmed by cath team. Current diagnosis: Chest Pain. PERRLA. Strong, equal hand zinc plater bilaterally. Lungs clear x 5 lobes. IV Site on Arrival: 20 gauge in the left forearm. IV Fluids: 0.9% NaCl at KVO. 0 mL infused prior to electrical laboratory technician. Pre Procedural Pulses: bilateral dorsalis pedis was 2+. Pre Procedural Pulses: bilateral posterior tibial was 2+. Pre Procedural Pulses: bilateral radial was 3+. Oxygen started at 2liters/min via nasal canula. bilateral groins was prepped with chloroprep then draped in the usual sterile fashion. right radial was prepped with chloroprep then draped in the usual sterile fashion. Physician notified. Baseline sample Acquired. HR: 95 BPM. Physician arrived. Equipment: 6F - Radial. ACIST Manifold Kit Model BT 2000. Cardiac Cath Pack. Heparinized Saline (2 units/mL), 1000 mL bag. Physician scrubbed in. Immediate Pre-Procedure Time Out. Correct Patient: Yes; Correct Procedure: Yes; Correct Site: Yes; Correct Patient Position: Yes; Correct Supplies: Yes; Dried Flammable Prep: Yes; Blood Products Available: No;. Lidocaine 1% infiltrated to the right radial. Arterial access obtained. A 6 austrian TIG catheter in over wire. Multiple views taken of right coronary artery. Catheter redirected to the LCA. Multiple views taken of left coronary artery. Catheter out. 6 austrian XB 3 guide catheter was inserted over the wire. 6 austrian JL 3.5 guide catheter was inserted over the wire. Guide catheter out. 6 austrian JL 3 guide catheter was inserted over the wire. EDP Sample taken: LV 147/-24,4; HR: 90 BPM; SpO2: 95%. Physician has decided to use groin approach. TR band placed on left radial site. Hemostasis obtained. Lidocaine 1% infiltrated to the right groin. Arterial access obtained with micropuncture set. [place] guidewire was advanced through the guide catheter to lesion in the mid LAD. Inflation number : 1 A AB TREK 2.50X8 RX BALLOON was prepped and advanced across the Mid LAD , then inflated to 14 CAPRI for 0:20 seconds. Inflation number: 2 The AB TREK 2.50X8 RX BALLOON was reinflated across the Mid LAD, to 14 CAPRI for 0:16 seconds. Balloon out. Inflation Number : 3 A MDT R SLADE 3.0X8 CELESTINE -Lot Number# [id number] was prepped and advanced across the Mid LAD. The stent was deployed at 12 CAPRI for 0:31 seconds. Stent expiration date: 02-24-2021. Inflation number : 4 A MDT NC EUPHORA RX [id number] BALLOON was prepped and advanced across the Mid LAD , then inflated to 16 CAPRI for 0:29 seconds. Inflation number: 5 The MDT NC EUPHORA RX [id number] BALLOON was reinflated across the Mid LAD, to 16 CAPRI for 0:18 seconds. Inflation number: 6 The MDT NC EUPHORA RX [id number] BALLOON was reinflated across the Mid LAD, to 16 CAPRI for 0:24 seconds. Wire out. Guide catheter out. Hand injection performed. ACT drawn. Results 217 seconds. Therapeutic limits - pre-heparin administration 90-150 seconds and monitoring heparin during a vascular procedure >250 seconds. Vital chart was stopped. Sheath(s) sutured into position with 2-0 silk and sterile 4x4's and Op-site applied over the site. No oozing or signs and symptoms of hematoma noted. Arterial sheath flushed and connected to tranducer and pressure bag with heparinized saline. Post Procedure: Pulses reassessed and unchanged. PERRLA. Strong, equal hand zinc plater bilaterally. No VTE prophylaxis required. PCI Indication: New Onset Angina. Medication's Wasted: Nitro = 49.8 mg. Total IV fluids: 150 mL. Post-op diagnosis: CAD. Complications: None. Estimated blood loss: 5mL-10mL. [facility] Clinical Fraility Score: 3: Managing Well. Pit Recorder Indications: New Onset Angina. Chest Pain Symptom Assessment: Typical Angina Symptoms. Cardiovascular Instability: No. Procedure completed. Patient transferred by bed to 1st floor. Site: Right Femoral artery Sheath Size: 6 Fr Hemostasis Success: Unsuccessful Procedure Medications Start: 10:56 AM Stop: 10:56 AM Medication: Versed Amount: 2 mg Route: I.V. Start: 10:57 AM Stop: 10:57 AM Medication: Fentanyl Amount: 50 mcg Route: I.V. Start: 11:04 AM Stop: 11:04 AM Medication: Nitrogylcerin Amount: 200 mcg Route: I.A. Start: 11:05 AM Stop: 11:05 AM Medication: Fentanyl Amount: 50 mcg Route: I.V. Start: 11:10 AM Stop: 11:10 AM Medication: Heparin Amount: 5000 units Route: I.V. Start: 11:20 AM Stop: 11:20 AM Medication: Heparin Amount: 4000 units Route: I.V. Start: 11:35 AM Stop: 11:35 AM Medication: Versed Amount: 2 mg Route: I.V. Start: 11:55 AM Stop: 11:55 AM Medication: Heparin Amount: 1000 units Route: I.V. Start: 12:13 PM Stop: 12:13 PM Medication: Heparin Amount: 1000 units Route: I.V. I, the attending physician, have reviewed and verified all procedure medications. Yes, all medications given per verbal order History/Risk Factors Hypertension: Yes Dyslipidemia: Yes Diabetic Therapy: Oral Peripheral Arterial Disease (PAD): No Myocardial Infarction (OR): No Obesity: Yes Renal Disease: No Tobacco Use: Never Prior Interventions PCI: No CABG: No Valve Surgery: No Report Signatures Finalized by:Garett Lopez MD on 09/10/2019 2:49:32 AM
[2019-08-29] MEDS: diphenhydrAMINE 50 mg Capsule PO (09:14)
[2019-08-29 09:15] LABS: Basophils # 0.1 10^3/uL (0.0-0.1); Basophils % 0.7 %; Eosinophils # 0.1 10^3/uL (0.0-0.8); Eosinophils % 1.7 %; Hematocrit 49.2 % (42.0-52.0); Lymphocytes # 1.8 10^3/uL (0.8-4.8); Lymphocytes % 25.5 %; Mean Corpuscular HGB Conc 34.6 g/dL (30.0-36.0); Mean Corpuscular Hemoglobin 29.8 pg (28.0-34.0); Mean Corpuscular Volume 86.3 fL (80-94); Mean Platelet Volume 8.9 fL (7.4-10.4); Monocytes # 0.4 10^3/uL (0.2-0.9); Neutrophils # 4.62 10^3/uL (1.8-7.7); Neutrophils % 65.8 %; Nucleated Red Blood Cells % 0 %; Platelet Count 192 10^3/cmm (130-400); Red Cell Distribution Width 11.9 % (12.1-15.1)
[2019-08-29 09:32] LABS: Alanine Aminotransferase 77 U/L (0-41); Albumin Level 4.4 g/dL (3.5-5.2); Alkaline Phosphatase 72 IU/L (40-130); Anion Gap 20.4 (5-19); Aspartate Amino Transferase 55 U/L (0-40); Blood Urea Nitrogen 14 mg/dL (6-20); Calcium 8.9 mg/dL (8.5-10.5); Carbon Dioxide 19 mmol/L (22-29); Chloride 98 mmol/L (98-107); Creatinine Clr Calc Pharmacy 148.4639; Glomerular Filtration Rate 104.1 mL/min (90-130); Glucose 289 mg/dL (65-115); Osmolality Calculated 283 mOsm/kg (285-295); Potassium 4.4 mmol/L (3.5-5.1); Sodium 133 mmol/L (136-145); Total Bilirubin 2.5 mg/dL (0.15-1.2); Total Protein 7.4 g/dL (6.6-8.7)
--- NOTE | 2019-08-29 09:56 | PC.CHAP ---
Pastoral Care Encounter/Spiritual Assessment Type of Contact [] Declined waste minimization technician visit [] Patient/Family/Request visit [] Outpatient visit [] Follow-up visit [] Physician referral [] Code/Alert [X] Routine visit [] Staff referral [] Actively dying [] Patient sleeping [] Family support [] [] Out of room [] Palliative care [] [] Receiving care in room [] Pre-surgical visit [] Trauma [] Long length of stay [] ICU visit [] Other: Relational/Emotional Strength [] Patient feels connected with others/family/visitors/staff [] Distress [] Loneliness/isolation [] Abandonment Spirituality of Patient [] Person of Kyra [] Attends Confucianism of their Kyra [] Believes in Prayer [] Reads Bible or Baptism materials [] There are Spiritual issues to be addressed Research Environmental Scientist Interventions [] Prayer [] Active listening [] Non-anxious presence [] Spiritual/emotional support [] Crisis/trauma care [] Spiritual counseling [] Bereavement support [] Provided bereavement packet [] Provided Bible/devotional materials [] Provided toy/stuffed animal, coloring book to patient or family member [] Provided Communion [] Anointing/[place]on [] Salvation [] Completed spiritual assessment [] Other: Impact on Illness or Injury [] Angry [] Fearful [] Anxious [] Often cries [] Exhaustion [] Unable to work [] Unable to attend buddhism [] Unable to walk/stand [] Unable to read [] Unable to drive [] Unable to eat/drink [] Unable to sleep [] Unable to be with family [] Patient intubated [] Other: Summary Time spent with patient
[2019-08-29 13:07] LABS: Glucose Point of Care 218 mg/dL (70-110)
[2019-08-29] MEDS: ticagrelor 90 mg Tablet 180 MG PO (13:26)
[2019-08-29] MEDS: aspirin 81 mg EC Tablet PO (14:34)
[2019-08-29] MEDS: gabapentin 100 mg Capsule PO ×2 (14:35→20:14)
[2019-08-29] MEDS: HYDROcodone-acetaminophen 5-325 mg Tablet 1 TAB PO (14:35)
[2019-08-29] MEDS: isosorbide mononitrate ER 30 mg Tablet 15 MG PO (14:35)
[2019-08-29] MEDS: pantoprazole DR 40 mg Tablet PO (14:35)
[2019-08-29] MEDS: metoprolol succinate ER (24 HR) 25 mg Tablet 12.5 MG PO (14:36)
[2019-08-29] MEDS: citalopram 20 mg Tablet PO (14:38)
--- NOTE | 2019-08-29 15:23 | PM.PN ---
Subjective Subjective: Interval history: Patient is status post PCI this morning with placement of stent in the LAD. He is currently chest pain-free. Continues to feel well. Blood pressure is much better controlled today. Noted mild elevation of AST ALT today. Medications: Reviewed: Yes Vitals/I&O/Wt Last Vital Signs Temp 98 F 08/29/19 04:00 Pulse 84 08/29/19 13:59 Resp 17 08/29/19 04:00 BP 121/80 08/29/19 04:00 Pulse Ox 94 08/29/19 13:59 Physical Exam Narrative: EXAM NARRATIVE: GEN: Awake, alert and oriented, no acute distress CVS: S1S2 N RS: CTA B/L Abd: Soft, nt/nd , bs+ PARTS COUNTER CLERK: no focal neuro deficits Data : 08/29/19 09:05 08/29/19 09:05 A&P Assessment and plan (1) Hypertension: Status: Acute Qualifiers: Hypertension type: essential hypertension Qualified Code(s): I10 - Essential (primary) hypertension (2) Diabetes mellitus: Status: Acute Qualifiers: Diabetes mellitus type: type 2 Diabetes mellitus intermediate insulin use: with extermination inspector use Diabetes mellitus complication status: without complication Qualified Code(s): E11.9 - Type 2 diabetes mellitus without complications; Z79.4 - snf (current) use of insulin (3) NSTEMI (non-ST elevated myocardial infarction): Status: Acute Additional A&P Information Continue CSU level of care 1. NSTEMI: -Stress test on August 27 noted to be abnormal with Small area of mid fixed perfusion defect surrounded by large area of severe reversibility noted in basal to distal anterior anteroseptal wall suggestive of small area for myocardial infarction surrounded by large area of kelsey-infarct ischemia most likely involving LAD territory. Also likely RCA involvement. -Status post PCI this morning with placement of stent in the LAD. -Patient has since been started on aspirin and Brilinta. -Started additionally on Toprol XL 12.5g qd and Imdur 15mg po qd -Resumed losartan - echocardiogram results pending -Reduce atorvastatin to 40 mg qd due to elevation in LFT noted today 2. DM: Currently on high dose sliding scale 3. HTN: Well controlled today Full code DVT ppx: lovenox Attestations Medical Necessity Statement*: Status post coronary angiogram with stenting this morning. Likely discharge in the upcoming 24 hours. Coding Level of Care Code Acute Director Global Development for g Fwd Diagnoses Hypertension I10 Hypertension type: essential hypertension Diabetes mellitus E11.9; Z79.4 Diabetes mellitus type: type 2 Diabetes mellitus intermediate insulin use: with extermination inspector use Diabetes mellitus complication status: without complication NSTEMI (non-ST elevated myocardial infarction) I21.4
--- NOTE | 2019-08-29 16:23 | PC.NURSE ---
received from cardiac clinical laboratory aide at 1240.report received.pt is drowsy but easily awakened.denies pain at present.sr on monitor.right wrist with tr band on and inflated.right hand is warm and dry to touch and with brisk capillary refill.no hematoma noted.palpable radial pulse noted distal to tr band.right femoral artery sheath intact to pressurized system.drsg is dry and intact.no hematoma noted.right foot dp pulse palpable and right leg is warm to touch and with brisk capillary refill.instructed in activity restrictions s/p femoral and radial artery procedures...and instructed to notify staff for any pain,bleeding,numbness,or for any concerns at all.pt verb understanding of instructions
[2019-08-29 17:11] LABS: Glucose Point of Care 226 mg/dL (70-110)
--- NOTE | 2019-08-29 17:21 | P.PN_ITS ---
Subjective Subjective: Interval history: Patient underwent angiogram noted to have highly calcified 95% mid LAD which was treated with balloon angioplasty followed by stent placement posted at high CAPRI with noncompliant balloon Vitals/I&O/Wt Last Vital Signs Temp 98 F 08/29/19 04:00 Pulse 84 08/29/19 13:59 Resp 17 08/29/19 04:00 BP 121/80 08/29/19 04:00 Pulse Ox 94 08/29/19 13:59 08/29/19 08/29/19 08/29/19 06:59 14:59 22:59 Intake Total 360 / 360 Balance 360 / 360 Physical Exam Narrative: EXAM NARRATIVE: GENERAL: Patient is alert, awake and oriented x3. NECK: No jugular vein distension. HEENT: No cyanosis. No icterus. No pallor. HEART: Regular S1 and S2. No murmur, rub or gallop. LUNGS: Clear to auscultate bilaterally. ABDOMEN: Soft, nontender and nondistended. Positive bowel sounds. No guarding, rebound or tenderness. CENTRAL NERVOUS SYSTEM: Grossly nonfocal. EXTREMITIES: Lower extremities without edema bilaterally. Data : 08/29/19 09:05 08/29/19 09:05 A&P Assessment and plan (1) CAD (coronary artery disease): Patient underwent angiogram which showed mid LAD 95% tight stenosis. It is highly calcified lesion treated with multiple balloon angioplasty followed by drug-eluting stent placement. Stent was postdilated with noncompliant balloon at high CAPRI in order to achieve approximation with the wall. We will switch patient to ticagrelor. Continue aspirin statin beta-lincoln advised to compliant with the food and medicine. Advised to control blood sugar better. Will ask for echocardiogram to assess LV function Status: Acute Qualifiers: Coronary Disease-Associated Artery/Lesion type: [place] artery [place] vs. transplanted heart: [place] heart Associated angina: with stable angina Qualified Code(s): I25.118 - Atherosclerotic heart disease of [place] coronary artery with other forms of angina pectoris (2) Hypertension: Getting under control. 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 mellitus terminal computer operator insulin use: with shelter use Diabetes mellitus complication status: without complication Qualified Code(s): E11.9 - Type 2 diabetes mellitus without complications; Z79.4 - correction (current) use of insulin Attestations Medical Necessity Statement*: Patient requires continuation of hospitalization for above defined care Coding Level of Care Code Established Pt Acute Manager Gallery for g Fwd Patient Type Established History Expanded Problem Focused Exam Expanded Problem Focused Medical Decision Making Moderate Complexity Diagnoses CAD (coronary artery disease) I25.118 Coronary Disease-Associated Artery/Lesion type: [place] artery [place] vs. transplanted heart: [place] heart Associated angina: with stable angina Hypertension I10 Hypertension type: essential hypertension Diabetes mellitus E11.9; Z79.4 Diabetes mellitus type: type 2 Diabetes mellitus shelter insulin use: with terminal computer operator use Diabetes mellitus complication status: without complication
[2019-08-29 17:27] LABS: Partial Thromboplastin Time 60.4 SECONDS (23.9-36.7)
[2019-08-29 19:52] LABS: Partial Thromboplastin Time 37.8 SECONDS (23.9-36.7)
[2019-08-29] MEDS: temazepam 15 mg Capsule PO (20:14)
[2019-08-29] MEDS: atorvastatin 40 mg Tablet PO (20:15)
[2019-08-29] MEDS: fentaNYL 50 mcg/mL INJ 2mL IVP (20:37)
--- NOTE | 2019-08-29 21:10 | PC.NURSE ---
Initiated sheath removal from right femoral artery at 2044 per protocol using aseptic technique. Hemostasis achieved immediately. Maintained pressure for 20min. Talked with patient and explained procudure to create ease. Patient remained calm with no s/s of anxiety observed. No s/s of bleeding or hematoma formation observed. Covered site with folded 4x4 and bio-occlusive dressing. Site remained c,d,i. Instructed patient on site care and restrictions. Patient verbalized understanding.
--- NOTE | 2019-08-29 21:15 | PC.NURSE ---
TR band removed from right radial site. Dressing c/d/i. No bleeding noted. Will continue to monitor.
[2019-08-29 23:29] LABS: Glucose Point of Care 245 mg/dL (70-110)
[2019-08-30] VITALS: BP 113/85; PULSE 69; RESP 17; TEMP 36.4; O2SAT 92
--- NOTE | 2019-08-30 03:30 | PC.NURSE ---
Pt ambulated to the bathroom. Right radial and femoral site c/d/i. Will continue to monitor.
[2019-08-30 04:00] VITALS: BP 122/83; PULSE 74; RESP 13; TEMP 36.6; O2SAT 95
[2019-08-30 06:03] LABS: Basophils % 0.4 %; Eosinophils # 0.1 10^3/uL (0.0-0.8); Hematocrit 43.1 % (42.0-52.0); Hemoglobin 14.8 g/dL (11.7-16.6); Lymphocytes # 1.1 10^3/uL (0.8-4.8); Lymphocytes % 16.8 %; Mean Corpuscular HGB Conc 34.3 g/dL (30.0-36.0); Mean Corpuscular Hemoglobin 30.3 pg (28.0-34.0); Mean Corpuscular Volume 88.3 fL (80-94); Mean Platelet Volume 9.2 fL (7.4-10.4); Monocytes # 0.5 10^3/uL (0.2-0.9); Monocytes % 7.5 %; Neutrophils # 5.01 10^3/uL (1.8-7.7); Neutrophils % 73.9 %; Nucleated Red Blood Cells % 0 %; Platelet Count 139 10^3/cmm (130-400); Red Blood Count 4.88 10^6/uL (4.1-5.3); Red Cell Distribution Width 11.9 % (12.1-15.1); White Blood Count 6.8 10^3/uL (4.0-10.0)
[2019-08-30 06:21] LABS: Anion Gap 15.1 (5-19); Blood Urea Nitrogen 17 mg/dL (6-20); Calcium 8.3 mg/dL (8.5-10.5); Carbon Dioxide 23 mmol/L (22-29); Chloride 102 mmol/L (98-107); Creatinine Clr Calc Pharmacy 148.4639; Glomerular Filtration Rate 104.1 mL/min (90-130); Glucose 268 mg/dL (65-115); Osmolality Calculated 288 mOsm/kg (285-295); Potassium 4.1 mmol/L (3.5-5.1); Sodium 136 mmol/L (136-145)
[2019-08-30 06:37] LABS: Glucose Point of Care 256 mg/dL (70-110)
[2019-08-30] MEDS: aspirin 81 mg EC Tablet PO (09:31)
[2019-08-30] MEDS: isosorbide mononitrate ER 30 mg Tablet 15 MG PO (09:31)
[2019-08-30] MEDS: gabapentin 100 mg Capsule PO (09:33)
[2019-08-30] MEDS: citalopram 20 mg Tablet PO (09:33)
[2019-08-30 09:34] VITALS: BP 119/67
[2019-08-30] MEDS: losartan 50 mg Tablet 25 MG PO (09:34)
[2019-08-30] MEDS: ticagrelor 90 mg Tablet PO (09:34)
[2019-08-30] MEDS: metoprolol succinate ER (24 HR) 25 mg Tablet 12.5 MG PO (09:36)
[2019-08-30] MEDS: pantoprazole DR 40 mg Tablet PO (09:36)
--- NOTE | 2019-08-30 10:44 | PM.DCS ---
Discharge Providers Date of Admission: 08/28/19 18:45 Date of Discharge: August 30, 2019 Attending Provider at Admission: Nova Tolentino MD Attending Provider at Discharge: Nova Tolentino MD Primary Care Provider: Kaye Mercado MD Diagnoses at Discharge Discharge Diagnosis (1) CAD (coronary artery disease): Status: Acute Qualifiers: Associated angina: with stable angina Coronary Disease-Associated Artery/Lesion type: [place] artery [place] vs. 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 He was found to have an NSTEMI, no acute ST-T changes however with increased weakness 2 and 6-hour delta troponins. He subsequently underwent Stress test on August 27 noted to be abnormal with Small area of mid fixed perfusion defect surrounded by large area of severe reversibility noted in basal to distal anterior anteroseptal wall suggestive of small area for myocardial infarction surrounded by large area of kelsey-infarct ischemia most likely involving LAD territory. Also likely RCA involvement. Subsequently underwent a PCI findings of a highly calcified 95% mid LAD lesion which was treated with balloon angioplasty followed by stent placement. He has subsequently been started on aspirin and Brilinta. NEw medications also include metoprolol and he had already been on losartan. Extensive counseling was provided regarding good glycemic control. Follow-up with ALEJANDRINA Harris in about a week and then with Dr. Lopez in one month. Dose of atorvastatin was also initially increased to 80 mg daily, however then noted to have a mild elevation in AST and ALT because of which it was brought back to 40 mg daily. Physical Exam Narrative: EXAM NARRATIVE: GEN: Awake, alert and oriented, no acute distress CVS: S1S2 N RS: CTA B/L Abd: Soft, nt/nd , bs+ PHARMACOGNOSY TEACHER: no focal neuro deficits Discharge Data Data Completed and Pending: Completed Studies During Hospitalization Category Date Time Status Sestamibi Stress Test Request Routi ne Exams 08/28/19 06:19 Draft XR chest 1V deena ble [id number] Stat Exams 08/27/19 09:05 Completed NM han perf SPECT r/s* [id number] Routin e Nuc Med 08/28/19 18:16 Completed CV echo complete* [id number] Routine Ultrasound 08/28/19 11:29 Completed Pending at discharge Category Date Time Status ECHO VASCULAR TECHNOLOGIST request for service Routin e Exams 08/29/19 09:09 Ordered Sestamibi Stress Test Request Routi ne Exams 08/27/19 18:12 Stop Req Liver Panel Rout ne Lab 08/30/19 05:14 Received Labs from last 24 hours 08/30/19 08/30/19 08/30/19 06:25 05:14 05:14 WBC 6.8 RBC 4.88 Hgb 14.8 Hct 43.1 MCV 88.3 MCH 30.3 MCHC 34.3 RDW 11.9 L Plt Count 139 MPV 9.2 Neut % (Auto) 73.9 Lymph % (Auto) 16.8 [place] % (Auto) 7.5 Eos % (Auto) 1.0 Baso % (Auto) 0.4 Neut # (Auto) 5.01 Lymph # (Auto) 1.1 [place] # (Auto) 0.5 Eos # (Auto) 0.1 Baso # (Auto) 0.0 Nucleated RBC % (a uto) 0 Nucleated RBCs # 0.0 APTT Sodium 136 Potassium 4.1 Chloride 102 Carbon Dioxide 23 Anion Gap 15.1 BUN 17 Creatinine 0.8 GFR Calculation 104.1 Glucose 268 H POC Glucose 256 Calculated Osmolal ity 288 Calcium 8.3 L 08/29/19 08/29/19 08/29/19 19:56 19:25 17:06 WBC RBC Hgb Hct MCV MCH MCHC RDW Plt Count MPV Neut % (Auto) Lymph % (Auto) [place] % (Auto) Eos % (Auto) Baso % (Auto) Neut # (Auto) Lymph # (Auto) [place] # (Auto) Eos # (Auto) Baso # (Auto) Nucleated RBC % (a uto) Nucleated RBCs # APTT 37.8 H Sodium Potassium Chloride Carbon Dioxide Anion Gap BUN Creatinine GFR Calculation Glucose POC Glucose 245 226 Calculated Osmolal ity Calcium 08/29/19 08/29/19 16:50 13:03 WBC RBC Hgb Hct MCV MCH MCHC RDW Plt Count MPV Neut % (Auto) Lymph % (Auto) [place] % (Auto) Eos % (Auto) Baso % (Auto) Neut # (Auto) Lymph # (Auto) [place] # (Auto) Eos # (Auto) Baso # (Auto) Nucleated RBC % (a uto) Nucleated RBCs # APTT 60.4 H Sodium Potassium Chloride Carbon Dioxide Anion Gap BUN Creatinine GFR Calculation Glucose POC Glucose 218 Calculated Osmolal ity Calcium Vitals: Last Vital Signs Temp 97.8 F 08/30/19 04:00 Pulse 74 08/30/19 04:00 Resp 13 08/30/19 04:00 BP 119/67 08/30/19 09:34 Pulse Ox 95 08/30/19 04:00 Discharge Plan Discharge Patient Disposition: Home, Self-Care Condition: Stable Prescriptions: New atorvastatin 40 mg Tablet 40 mg PO BEDTIME 30 Days Qty: 30 RF: 0 aspirin 81 mg Tablet,Delayed Release (Dr/Ec) 81 mg PO DAILY 30 Days Qty: 30 RF: 2 pantoprazole 40 mg Tablet,Delayed Release (Dr/Ec) 40 mg PO DAILY 30 Days Qty: 30 RF: 0 metoprolol succinate 25 mg Tablet Extended Release 24 Hr 25 mg PO DAILY 30 Days RF: 0 Mag-Al Plus 200-200-20 mg/5 mL Suspension 30 ml PO Q15M PRN (Reason: Indigestion) Qty: 0 RF: 0 Brilinta 90 mg Tablet 90 mg PO BID 30 Days Qty: 60 RF: 0 Continued glipizide 10 mg Tablet 10 mg PO DAILY RF: 0 citalopram 20 mg Tablet 20 mg PO DAILY RF: 0 metformin 1,000 mg Tablet 1,000 mg PO BID RF: 0 losartan 25 mg Tablet 25 mg PO DAILY RF: 0 gabapentin 100 mg Capsule 100 mg PO TID RF: 0 Victoza 2-Richard 0.6 mg/0.1 mL (18 mg/3 mL) Pen Injector 1.8 mg SUBCUT DAILY RF: 0 Tresiba FlexTouch U-100 100 unit/mL (3 mL) Insulin Pen 70 unit SUBCUT DAILY RF: 0 Discontinued pravastatin 20 mg Tablet 20 mg PO BEDTIME RF: 0 Discharge Orders: Discharge Order (Routine); Ordered 08/30/19 Ordered By: Nova Tolentino Referrals: Kaye Mercado MD [Primary Care Provider] - 4-7 days ([facility] will be calling to schedule a hospital follow with Dr. Mercado. If you don't hear from them by tomorrow afternoon, please call them. Thank you) Garett Lopez MD [Physician] - 1 month ([facility] will be calling to schedule a cardiology followup with Dr. Lopez to be seen in approx. 1 month. If you don't hear from them by tomorrow afternoon, please give them a call. Thank you) Sailaja Harris FNP [Nurse Practitioner] - 1 week ([facility] will be calling to set up a post procedure followup with ELIJAH Warner to be seen in 1 week. If you don't hear from them by Tomorrow afternoon, please give them a call. Thank you) Discharge Diet: Cardiac and Diabetic Discharge Activity: Resume usual activity Patient Instructions: Diabetes and Diet, Metoprolol (By mouth), Antacid, Aluminum and Magnesium (By mouth), Aspirin (By mouth), Atorvastatin (By mouth), Pantoprazole (By mouth), Ticagrelor (By mouth), Myocardial Infarction (DC), Diabetes Mellitus Type 2 in Adults (DC), Basic Carbohydrate Counting (DC), Post Angiogram Home Care Instructions, Post Heart Attack Stoplight Discharge Date/Time: 08/30/19 13:55 Discharge Attestations Time Spent in Discharge Care*: greater than 30 min Quality Metrics Clinical Quality Measures During this hospital stay, did patient experience: AMI Clinical Trial Participant: No Contraindication to aspirin (AMI): Aspirin given Contraindication to statin: Statin prescribed Coding Level of Care Code Acute Laboratory Equipment Installer for g Fwd Diagnoses CAD (coronary artery disease) I25.118 Associated angina: with stable angina Coronary Disease-Associated Artery/Lesion type: [place] artery [place] vs. 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
[2019-08-30 10:51] LABS: Alanine Aminotransferase 60 U/L (0-41); Albumin Level 3.9 g/dL (3.5-5.2); Alkaline Phosphatase 65 IU/L (40-130); Aspartate Amino Transferase 36 U/L (0-40); Globulin 2.6 g/dL (1.3-4.6); Total Bilirubin 1.7 mg/dL (0.15-1.2); Total Protein 6.5 g/dL (6.6-8.7)
[2019-08-30 12:02] LABS: Glucose Point of Care 226 mg/dL (70-110)
--- NOTE | 2019-08-30 12:26 | P.PN_ITS ---
Subjective Subjective: Interval history: No overnight event. Feeling much better. Patient was switched to Brilinta after loading 180 mg yesterday Medications: Reviewed: Yes Vitals/I&O/Wt Last Vital Signs Temp 97.8 F 08/30/19 04:00 Pulse 74 08/30/19 04:00 Resp 13 08/30/19 04:00 BP 119/67 08/30/19 09:34 Pulse Ox 95 08/30/19 04:00 08/29/19 08/30/19 08/30/19 22:59 06:59 14:59 Intake Total 240 / 240 Output Total 0 / 0 0 / 0 Balance 0 / 360 0 / 360 240 / 240 Physical Exam Narrative: EXAM NARRATIVE: GENERAL: Patient is alert, awake and oriented x3. NECK: No jugular vein distension. HEENT: No cyanosis. No icterus. No pallor. HEART: Regular S1 and S2. No murmur, rub or gallop. LUNGS: Clear to auscultate bilaterally. ABDOMEN: Soft, nontender and nondistended. Positive bowel sounds. No guarding, rebound or tenderness. CENTRAL NERVOUS SYSTEM: Grossly nonfocal. EXTREMITIES: Lower extremities without edema bilaterally. Data : 08/30/19 05:14 08/30/19 05:14 A&P Assessment and plan (1) CAD (coronary artery disease): Status post PCI to mid LAD with drug-eluting stent for angina and abnormal stress test. Patient has been started on beta-lincoln he is on losartan. Patient has been switched to Brilinta. Continue Brilinta 90 mg twice a day for next 1 year. Take 81 mg of aspirin with it. Status: Acute Qualifiers: Coronary Disease-Associated Artery/Lesion type: [place] artery [place] vs. transplanted heart: [place] heart Associated angina: with stable angina Qualified Code(s): I25.118 - Atherosclerotic heart disease of [place] coronary artery with other forms of angina pectoris (2) Hypertension: Well-controlled. Continue medicine Status: Acute Qualifiers: Hypertension type: essential hypertension Qualified Code(s): I10 - Essential (primary) hypertension (3) Diabetes mellitus: As per medicine Status: Acute Qualifiers: Diabetes mellitus type: type 2 Diabetes mellitus fdc insulin use: with fdc use Diabetes mellitus complication status: without complication Qualified Code(s): E11.9 - Type 2 diabetes mellitus without complications; Z79.4 - long term care administrator (current) use of insulin (4) LV dysfunction: Mildly depressed LV function at 50%. Continue beta-lincoln and losartan. Advised to lose weight. Advise meticulous control of diabetes. Status: Acute (5) Dyslipidemia: Patient is on statin. Will continue Status: Acute Attestations Medical Necessity Statement*: Patient can be discharged home. Follow-up with Sailaja Harris cardiology nurse practitioner in [address] Lopez in 4 weeks. Follow-up with Dr. Villatoro's office in 10 days. Coding Level of Care Code Established Pt Acute Battery Charger for Chg Fwd Patient Type Established History Detailed Exam Detailed Medical Decision Making Moderate Complexity Diagnoses CAD (coronary artery disease) I25.118 Coronary Disease-Associated Artery/Lesion type: [place] artery [place] vs. transplanted heart: [place] heart Associated angina: with stable angina Hypertension I10 Hypertension type: essential hypertension Diabetes mellitus E11.9; Z79.4 Diabetes mellitus type: type 2 Diabetes mellitus meterman insulin use: with fdc use Diabetes mellitus complication status: without complication LV dysfunction I51.9 Dyslipidemia E78.5
--- NOTE | 2019-08-30 12:44 | PC.NURSE ---
brilinta 90 mg ordered for now .not given..due to 90 mg brilinta already given this morning.dr archer ordered to dc the now order.
[2019-08-30 13:02] VITALS: BP 119/67
--- NOTE | 2019-08-30 13:55 | PC.NURSE ---
discharge instructions given and explained.pt verb understanding of instructions.brilinta and atorvastatin evening doses supplied for pt since pt's pharmacy is not open today.pt states will sisal picker prescriptions first thing tomorrow morning.taken by w/c to exit.father to drive pt home.
--- NOTE | 2019-09-01 08:39 | PC.SOCIAL ---
Called by [facility] yesterday regarding Brilinta. Patient insurance prefers Plavix. Called Dr Tolentino who referred this nurse to Dr Lopez. Called Dr Lopez office and he is doing procedures. Christine nurse indicates will discuss with provider when available. Around 5:30pm was called by Christine and indicate Dr Lopez wants patient to have Brilinta. She is unaware if there is assistance program etc. This am followed up with first floor and there is a coupon. Called patient this am to discuss insurance plan and what coupon may work. Patient indicates he saw Dr Mercado yesterday who provided samples to him for one month. She also had the cards for $5 copay ongoing since he has a commercial plan. This was the same coupon this nurse was going to discuss. Patient indicates he has everything he needs and pharmacy is aware of the coupon for next month and ongoing for a one year supply. He appreciated the call.
== END 2019-08-30 13:55 | disposition skilled nursing facility (03) | DRG 247 ==
LOC: ER 12:30 → CSU 12:31
PROVIDERS: Internal Medicine Cardiovascular Disease; Admitting Provider Student in an Organized Health Care Education/Training Program; Emergency Provider Family Medicine; PCP Internal Medicine; Visit Provider Student in an Organized Health Care Education/Training Program
PROC: 027034Z Dilation of Coronary Artery, One Artery with Drug-eluting Intraluminal Device, Percutaneous Approach (ICD-10-PCS; principal; 2019-08-29 10:00)
PROC: 027034Z Dilation of Coronary Artery, One Artery with Drug-eluting Intraluminal Device, Percutaneous Approach (ICD-10-PCS; 2019-08-29 10:00)
DX: I25.118 Atherosclerotic heart disease of native coronary artery with other forms of angina pectoris (principal); I10 Essential (primary) hypertension; E11.9 Type 2 diabetes mellitus without complications; E78.5 Hyperlipidemia, unspecified; Z79.84 Long term (current) use of oral hypoglycemic drugs
CPT/HCPCS: 12345; 36415; 36416; 71045; 78452; 80048; 80053; 80076; 82962; 83880; 84443; 84484; 85025; 85347; 85378; 85610; 85730; 93005; 93017; 93306; 93454; 96372; 96375; 99283; A9500; C1725; C1769; C1874; C1887; C1894; C9600; G0378; J1644; J1650; J1815; J2250; J2785; J3010; J3490; J7030; Q0163; Q9967

== ENCOUNTER → 2019-09-04 12:13 | Outpatient (BNVA) | payer OTHER, SELFPAY | PROVIDERS: PCP Internal Medicine; Visit Provider Nurse Practitioner Family | DX: I25.118 Atherosclerotic heart disease of native coronary artery with other forms of angina pectoris (principal); Z09 Encounter for follow-up examination after completed treatment for conditions other than malignant neoplasm | CPT/HCPCS: 80048 ==

== ENCOUNTER 2020-07-18 07:58 | Emergency (ER) | payer OTHER, SELFPAY ==
[2020-07-18] VITALS (9 sets, daily range): BP systolic 119–142; BP diastolic 71–89; PULSE 89–120; RESP 16–24; TEMP 37.1; O2SAT 93–99; BMI 36.9
--- NOTE | 2020-07-18 08:23 | XRR_ITS ---
PROCEDURE INFORMATION: Exam: XR Chest Exam date and time: 07/18/2020 8:31 AM Age: 44 years old Clinical indication: Cough and shortness of breath; Prior surgery; Surgery type: Stent; Patient HX: Nosebleed, clammy, cough, SOB, vomiting black stuff; Additional info: Dyspnea/cough TECHNIQUE: Imaging protocol: XR of the chest. Views: 1 view. COMPARISON: CR XR chest 1V portable [id number] 08/27/2019 9:05 AM FINDINGS: Lungs: Emphysematous change, without acute airspace disease. Pleural spaces: No pleural effusion. Heart/Mediastinum: No cardiomegaly. Bones/joints: Unremarkable. When correlating with the previous study, no significant interval changes are present. XR/XR chest 1V portable [id number] IMPRESSION: Stable appearance of the chest, not significantly changed from 08/27/19.
--- NOTE | 2020-07-18 08:23 | CT_ITS ---
WS: [id number] CT ABDOMEN AND PELVIS WITH CONTRAST HISTORY: Abdominal pain. TECHNIQUE: Imaging performed of the abdomen and pelvis with IV contrast. Single phase imaging of the abdomen. Coronal and sagittal reformats are submitted. All CT scans at [facility] use at least one of these dose optimization techniques: automated exposure control; mA and/or kV adjustment per patient size (includes targeted exams where dose is matched to clinical indication); or iterativ e reconstruction. IV CONTRAST: Omnipaque 300; 95 mL IV. Oral contrast: No DLP: 1981.38 mGy.cm COMPARISON: None available. Lower thorax: At the lung bases there are small, subcentimeter ill-defined opacifications. Most signi ficant at the LEFT lung base. Heart is normal size. Small hiatal hernia. Liver/biliary system: Normal size. No bile duct dilatation. Benign granuloma. Gallbladder: Cholelithiasis without evidence for acute cholecystitis. No gallbladder wall thickening or pericholecystic edema. Pancreas: Normal size pancreas and pancreatic duct. No adjacent inflammation. Spleen: Normal size spleen. No mass or infarct. Adrenal glands: Normal. Right kidney: Normal. Left kidney: No hydronephrosis. Too small to characterize hypodensity measuring 8 mm in the mid geo al cortex. Aorta: Normal. Lymphadenopathy: None. Free fluid: None. GI tract: Normal appendix. Very mild constipation. No wall thickening or GI tract obstruction. There are a few small scattered noninflammatory diverticula throughout the sigmoid colon. Abdominal wall: Unremarkable abdominal wall. No hernia. Pelvis: No free fluid or adenopathy within the pelvis. Bones: Unremarkable. CT/CT abdomen pelvis w con* [id number] IMPRESSION: 1. No acute abdominal or pelvic abnormalities are identified. 2. Normal appendix. 3. Very mild sigmoid diverticulosis without acute diverticulitis. 4. Bibasilar ill-defined subcentimeter opacifications at the lung bases probab ly due to pneumonitis. 5. Cholelithiasis without acute cholecystitis.
--- NOTE | 2020-07-18 08:23 | ECG_ITS ---
[facility] Test Date: 2020-07-18 Pat Name: Ortega Levi Department: Room: Gender: Male Rehabilitation Services Director: : 1975 Requested By: Telly Skinner Order Number: [id number] Alex MD: Reza Yost M.D. Measurements Intervals [place] Rate: 107 P: 36 VA: 145 QRS: -3 QRSD: 84 T: 30 QT: 319 QTc: 426 Interpretive Statements SINUS TACHYCARDIA Compared to ECG 08/28/2019 11:54:42 Sinus rhythm no longer present Electronically Signed On 07-18-2020 12:31:31 CDT by Reza Yost M.D. [email or web address]
--- NOTE | 2020-07-18 08:28 | ED_ITS ---
HPI - Epistaxis General: Chief complaint: Epistaxis Stated complaint: Nose Bleed, Dark Stool, SOB, sent from Dr. 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 He is diabetic his blood sugar was greater than 400 he been throwing up some dark blood presumably from the epistaxis. He is on clopidogrel which he took regularly through the weekend along with aspirin. Is a known history of heart disease as well as hypertension. He had his cardiac stent placed approximately 1 year ago. He denies any fever sweats or chills he does relate he has had some dark tarry stools recently. Epistaxis had resolved when he arrived here. MD complaint: epistaxis Location: bilateral nostril Onset (ago): hour(s) Duration: intermittent Context: other anticoagulant use (clopridogrel) Associated symptoms: Reports vomiting and weakness; Deny fever(s), headache(s), sinus pain or syncope Treatment prior to arrival: nose pinching and head tilted back Review of Systems Const: Denies: fever(s) ENMT: Denies: sinus pain Card: Denies: syncope Resp: Denies: dyspnea, productive cough or non-productive cough GI: Reports: vomiting : Denies: flank pain, dysuria, urinary frequency or urinary urgency Skin/Breast: Denies: rash or pruritus Neuro: Denies: headache(s) PFS ED PFSH: Medical History (Updated 07/18/20 @ 12:28 by Telly Whitt DO) CAD (coronary artery disease) Diabetes mellitus Dyslipidemia Hypertension Physical Exam Const: COMMON NORMALS: no acute distress GENERAL APPEARANCE: cooperative and comfortable ORIENTATION/CONSCIOUSNESS: Yes awake, Yes oriented to person, Yes oriented to place and Yes oriented to time HENMT: COMMON NORMALS: normocephalic, atraumatic, hearing grossly normal bilaterally and external ears normal HEAD & SCALP: normocephalic and atraumatic EXTERNAL EAR: Yes external ears normal Eye: COMMON NORMALS: Equal, round and reactive pupils present, EOMs intact bilaterally, conjunctivae normal and no scleral icterus CONJUNCTIVA: Yes conjunctivae normal PUPIL: Yes Equal, round and reactive pupils present Neck/C-Spine: COMMON NORMALS: no JVD Resp: COMMON NORMALS: normal respiratory effort, No retractions, No use of accessory muscles and clear to auscultation bilaterally AUSCULTATION: clear to auscultation bilaterally Cardio: COMMON NORMALS: no JVD, regular rate, regular rhythm and No murmurs present (Cardio) RATE: regular rate RHYTHM: regular rhythm GI: COMMON NORMALS: Soft to palpation and No hepatosplenomegaly present AUSCULTATION: Yes normoactive bowel sounds PALPATION: Yes Soft to palpation, No Tenderness to palpation present (GI), No Guarding due to palpation present (GI) and Yes No hepatosplenomegaly present Extremity: COMMON NORMALS: normal to inspection, capillary refill normal, no clubbing, cyanosis or edema, no calf tenderness and no pedal edema Neuro: SENSORIUM/ORIENTATION: Yes oriented to person, Yes oriented to place and Yes oriented to time Skin: COMMON NORMALS: no rashes or lesions noted GENERAL SKIN EXAM: no rashes or lesions noted Course Vital Signs: Vital signs: Vital Signs Temperature 98.8 F 07/18/20 10:30 Pulse Rate 107 H 07/18/20 13:00 Respiratory Rate 20 H 07/18/20 13:00 Blood Pressure 123/80 07/18/20 13:00 Pulse Oximetry 94 07/18/20 13:00 MDM - Epistaxis MDM Narrative: Medical decision making narrative: Patient is feeling much better he still little bit tachycardic we gave him his carvedilol. He also given 3 L of fluid his lactate and his anion gap closed. We recommended a rectal exam to check for rectal bleeding however he declined his hemoglobin is stable and old he has bled and off necessarily to have significant contributing factor to his tachycardia. He would prefer to go home. I think that is safe at this point we will have him follow-up tomorrow with his doctor return if he has further problems continue fluids advance as tolerated he is coughing a little bit of any give him some Lab Data: Labs: Lab Results 07/18/20 07/18/20 07/18/20 Range/Units 08:25 08:25 08:25 WBC 11.9 H (4.0-10.0) 10^3/ uL RBC 4.63 (4.1-5.3) 10^6/u L Hgb 12.9 (11.7-16.6) g/dL Hct 37.9 L (42.0-52.0) % MCV 81.9 (80-94) fL MCH 27.9 L (28.0-34.0) pg MCHC 34.0 (30.0-36.0) g/dL RDW 14.1 (12.1-15.1) % Plt Count 195 (130-400) 10^3/c mm MPV 9.2 (7.4-10.4) fL Neut % (Auto) 81.4 % Lymph % (Auto) 10.7 % [place] % (Auto) 6.5 % Eos % (Auto) 0.7 % Baso % (Auto) 0.3 % Neut # (Auto) 9.71 H (1.8-7.7) 10^3/u L Lymph # (Auto) 1.3 (0.8-4.8) 10^3/u L [place] # (Auto) 0.8 (0.2-0.9) 10^3/u L Eos # (Auto) 0.1 (0.0-0.8) 10^3/u L Baso # (Auto) 0.0 (0.0-0.1) 10^3/u L Nucleated RBC % (a uto) 0 % Nucleated RBCs # 0.0 /100WBC PT 12.20 (12.1-14.9) SECO NDS INR 0.88 (0.8-1.2) APTT 24.7 (23.9-36.7) SECO NDS Specimen Type Sample Site ABG pH (7.35-7.45) ABG pCO2 (35-45) mmHg ABG pO2 (80.0-100.0) mmH g ABG HCO3 (22-26) mmol/L ABG O2 Saturation ABG Base Excess (-2.0-2.0) mmol/ L Wil Test A-a O2 Gradient (5-10) mmHg Hematocrit (42-52) % Hgb O2 Saturation (95-100) % Carboxyhemoglobin (0.4-20.1) %THgb Methemoglobin (0.4-1.5) % Total Hemoglobin (14-18) g/dL Ionized Calcium (1.1-1.4) mmol/L O2 Delivery Device FiO2 % Philanthropy Officer ID Sodium (136-145) mmol/L Potassium (3.5-5.1) mmol/L Chloride (98-107) mmol/L Carbon Dioxide (22-29) mmol/L Anion Gap (5-19) BUN (6-20) mg/dL Creatinine (0.7-1.2) mg/dL GFR Calculation (90-130) mL/min Glucose (65-115) mg/dL POC Glucose (70-110) mg/dL Calculated Osmolal ity (285-295) mOsm/k g Lactic Acid 2.5 H (0.5-2.2) mmol/L Lactic Acid (Sepsi s) (0.5-2.2) mmol/L Calcium (8.5-10.5) mg/dL Total Bilirubin (0.15-1.2) mg/dL AST (0-40) U/L ALT (0-41) U/L Alkaline Phosphata se (40-130) IU/L Creatine Kinase (39-308) U/L Total Protein (6.6-8.7) g/dL Albumin (3.5-5.2) g/dL Globulin (1.3-4.6) g/dL Lipase (13-60) U/L Urine Color (Yellow) Urine Appearance (CLEAR) Urine pH (5-7) Ur Specific Gravit y (1.005-1.030) Urine Protein (Negative) Urine Glucose (UA) (Normal) Urine Ketones (Negative) Urine Blood (Negative) Urine Nitrate (Negative) Urine Bilirubin (Negative) Urine Urobilinogen (Negative) mg/dL Ur Leukocyte Felicita ase (Negative) 07/18/20 07/18/20 07/18/20 Range/Units 08:25 08:33 09:50 WBC (4.0-10.0) 10^3/ uL RBC (4.1-5.3) 10^6/u L Hgb (11.7-16.6) g/dL Hct (42.0-52.0) % MCV (80-94) fL MCH (28.0-34.0) pg MCHC (30.0-36.0) g/dL RDW (12.1-15.1) % Plt Count (130-400) 10^3/c mm MPV (7.4-10.4) fL Neut % (Auto) % Lymph % (Auto) % [place] % (Auto) % Eos % (Auto) % Baso % (Auto) % Neut # (Auto) (1.8-7.7) 10^3/u L Lymph # (Auto) (0.8-4.8) 10^3/u L [place] # (Auto) (0.2-0.9) 10^3/u L Eos # (Auto) (0.0-0.8) 10^3/u L Baso # (Auto) (0.0-0.1) 10^3/u L Nucleated RBC % (a uto) % Nucleated RBCs # /100WBC PT (12.1-14.9) SECO NDS INR (0.8-1.2) APTT (23.9-36.7) SECO NDS Specimen Type Arterial Sample Site Radial, right ABG pH 7.45 (7.35-7.45) ABG pCO2 28.8 L (35-45) mmHg ABG pO2 69.0 L (80.0-100.0) mmH g ABG HCO3 19.8 L (22-26) mmol/L ABG O2 Saturation 91.5 ABG Base Excess -3.1 L (-2.0-2.0) mmol/ L Wil Test Pos A-a O2 Gradient 5.7 (5-10) mmHg Hematocrit 39.6 L (42-52) % Hgb O2 Saturation 90.6 L (95-100) % Carboxyhemoglobin 0.1 L (0.4-20.1) %THgb Methemoglobin 0.9 (0.4-1.5) % Total Hemoglobin 12.9 L (14-18) g/dL Ionized Calcium 1.2 (1.1-1.4) mmol/L O2 Delivery Device Room air FiO2 21.0 % Philanthropy Officer ID [place] Sodium 137 138.0 (136-145) mmol/L Potassium 5.0 4.8 (3.5-5.1) mmol/L Chloride 100 (98-107) mmol/L Carbon Dioxide 21 L (22-29) mmol/L Anion Gap 21.0 H (5-19) BUN 31 H (6-20) mg/dL Creatinine 0.8 (0.7-1.2) mg/dL GFR Calculation 104.1 (90-130) mL/min Glucose 395 H 394.0 H (65-115) mg/dL POC Glucose (70-110) mg/dL Calculated Osmolal ity 307 H (285-295) mOsm/k g Lactic Acid (0.5-2.2) mmol/L Lactic Acid (Sepsi s) (0.5-2.2) mmol/L Calcium 9.1 (8.5-10.5) mg/dL Total Bilirubin 2.1 H (0.15-1.2) mg/dL AST 13 (0-40) U/L ALT 22 (0-41) U/L Alkaline Phosphata se 102 (40-130) IU/L Creatine Kinase 99 (39-308) U/L Total Protein 6.6 (6.6-8.7) g/dL Albumin 4.2 (3.5-5.2) g/dL Globulin 2.4 (1.3-4.6) g/dL Lipase 33 (13-60) U/L Urine Color Straw (Yellow) Urine Appearance Clear (CLEAR) Urine pH 5 (5-7) Ur Specific Gravit y 1.010 (1.005-1.030) Urine Protein Neg (Negative) Urine Glucose (UA) 4+ H (Normal) Urine Ketones 2+ H (Negative) Urine Blood Neg (Negative) Urine Nitrate Negative (Negative) Urine Bilirubin Neg (Negative) Urine Urobilinogen Norm (Negative) mg/dL Ur Leukocyte Felicita ase Negative (Negative) 07/18/20 07/18/20 07/18/20 Range/Units 11:26 11:27 12:27 WBC (4.0-10.0) 10^3/ uL RBC (4.1-5.3) 10^6/u L Hgb (11.7-16.6) g/dL Hct (42.0-52.0) % MCV (80-94) fL MCH (28.0-34.0) pg MCHC (30.0-36.0) g/dL RDW (12.1-15.1) % Plt Count (130-400) 10^3/c mm MPV (7.4-10.4) fL Neut % (Auto) % Lymph % (Auto) % [place] % (Auto) % Eos % (Auto) % Baso % (Auto) % Neut # (Auto) (1.8-7.7) 10^3/u L Lymph # (Auto) (0.8-4.8) 10^3/u L [place] # (Auto) (0.2-0.9) 10^3/u L Eos # (Auto) (0.0-0.8) 10^3/u L Baso # (Auto) (0.0-0.1) 10^3/u L Nucleated RBC % (a uto) % Nucleated RBCs # /100WBC PT (12.1-14.9) SECO NDS INR (0.8-1.2) APTT (23.9-36.7) SECO NDS Specimen Type Sample Site ABG pH (7.35-7.45) ABG pCO2 (35-45) mmHg ABG pO2 (80.0-100.0) mmH g ABG HCO3 (22-26) mmol/L ABG O2 Saturation ABG Base Excess (-2.0-2.0) mmol/ L Wil Test A-a O2 Gradient (5-10) mmHg Hematocrit (42-52) % Hgb O2 Saturation (95-100) % Carboxyhemoglobin (0.4-20.1) %THgb Methemoglobin (0.4-1.5) % Total Hemoglobin (14-18) g/dL Ionized Calcium (1.1-1.4) mmol/L O2 Delivery Device FiO2 % Philanthropy Officer ID Sodium 135 L (136-145) mmol/L Potassium 4.3 (3.5-5.1) mmol/L Chloride 101 (98-107) mmol/L Carbon Dioxide 19 L (22-29) mmol/L Anion Gap 19.3 H (5-19) BUN 26 H (6-20) mg/dL Creatinine 0.6 L (0.7-1.2) mg/dL GFR Calculation 145.0 H (90-130) mL/min Glucose 241 H (65-115) mg/dL POC Glucose 273 H (70-110) mg/dL Calculated Osmolal ity 293 (285-295) mOsm/k g Lactic Acid (0.5-2.2) mmol/L Lactic Acid (Sepsi s) 1.7 (0.5-2.2) mmol/L Calcium 8.2 L (8.5-10.5) mg/dL Total Bilirubin (0.15-1.2) mg/dL AST (0-40) U/L ALT (0-41) U/L Alkaline Phosphata se (40-130) IU/L Creatine Kinase (39-308) U/L Total Protein (6.6-8.7) g/dL Albumin (3.5-5.2) g/dL Globulin (1.3-4.6) g/dL Lipase (13-60) U/L Urine Color (Yellow) Urine Appearance (CLEAR) Urine pH (5-7) Ur Specific Gravit y (1.005-1.030) Urine Protein (Negative) Urine Glucose (UA) (Normal) Urine Ketones (Negative) Urine Blood (Negative) Urine Nitrate (Negative) Urine Bilirubin (Negative) Urine Urobilinogen (Negative) mg/dL Ur Leukocyte Felicita ase (Negative) Discharge Plan Discharge Patient Disposition: Home Clinical Impression: Dehydration, Bronchitis, Epistaxis Condition: Stable Prescriptions: New doxycycline hyclate 100 mg tablet,delayed release (DR/EC) 100 mg PO BID 14 Days Qty: 28 RF: 0 No Action pantoprazole 40 mg tablet,delayed release (DR/EC) 40 mg PO DAILY RF: 0 losartan 50 mg tablet 50 mg PO DAILY RF: 0 atorvastatin 40 mg tablet 40 mg PO DAILY Qty: 90 RF: 3 aspirin 81 mg tablet,delayed release (DR/EC) 81 mg PO DAILY 30 Days Qty: 30 RF: 2 clopidogrel 75 mg tablet 75 mg PO DAILY Qty: 30 RF: 6 carvedilol 3.125 mg tablet 3.125 mg PO BID Qty: 60 RF: 6 Nuzhat 180 mg Tablet 180 mg PO DAILY RF: 0 CoQ-10 100 mg Capsule 100 mg PO DAILY RF: 0 Ponder Saline Gel Swab 1 ea INTRANASAL BID RF: 0 Lantus Solostar U-100 Insulin 100 unit/mL (3 mL) insulin pen 80 unit SUBCUT QAM RF: 0 Victoza 3-Richard 0.6 mg/0.1 mL (18 mg/3 mL) pen injector 1.8 mg SUBCUT QAM RF: 0 Jardiance 10 mg tablet 10 mg PO DAILY RF: 0 Vitamin C 1 tab PO DAILY RF: 0 citalopram 20 mg Tablet 20 mg PO DAILY RF: 0 metformin 1,000 mg Tablet 1,000 mg PO BID RF: 0 gabapentin 100 mg Capsule 100 mg PO BID RF: 0 Discharge Orders: Discharge ED (Routine); Ordered 07/18/20 Ordered By: Telly Whitt Referrals: Kaye Mercado MD [Primary Care Provider] - Discharge Diet: Usual diet Discharge Activity: Increase activity as tolerated Patient Instructions: Opioid Safety Activity Restrictions/Additional Instructions: Follow-up with your primary care doctor in the next 3 days. Coding Level of Care Code ED [employer] for Chg Fwd Exam Comprehensive
[2020-07-18 08:39] LABS: Basophils % 0.3 %; Eosinophils # 0.1 10^3/uL (0.0-0.8); Eosinophils % 0.7 %; Hematocrit 37.9 % (42.0-52.0); Hemoglobin 12.9 g/dL (11.7-16.6); Lymphocytes # 1.3 10^3/uL (0.8-4.8); Lymphocytes % 10.7 %; Mean Corpuscular Hemoglobin 27.9 pg (28.0-34.0); Mean Corpuscular Volume 81.9 fL (80-94); Mean Platelet Volume 9.2 fL (7.4-10.4); Monocytes # 0.8 10^3/uL (0.2-0.9); Monocytes % 6.5 %; Neutrophils # 9.71 10^3/uL (1.8-7.7); Neutrophils % 81.4 %; Nucleated Red Blood Cells % 0 %; Platelet Count 195 10^3/cmm (130-400); Red Blood Count 4.63 10^6/uL (4.1-5.3); Red Cell Distribution Width 14.1 % (12.1-15.1); White Blood Count 11.9 10^3/uL (4.0-10.0)
[2020-07-18] MEDS: sodium chloride 0.9% 1,000 ML 999 ML IV ×3 (08:39→13:02)
[2020-07-18 08:46] LABS: ABG PCO2 28.8 mmHg (35-45); ABG PH Result 7.45 (7.35-7.45); Alveolar-Arterial Oxygen Gradi 5.7 mmHg (5-10); Arterial Blood Gas Hematocrit 39.6 % (42-52); Base Excess ABG -3.1 mmol/L (-2.0-2.0); Blood Gas Allen Test Pos; Blood Gas Operator Identificat MONRO; Blood Gas Sample Site Radial, right; Blood Gas Sample Type Arterial; Carboxyhemoglobin 0.1 %THgb (0.4-20.1); HCO3 ABG 19.8 mmol/L (22-26); HGB O2 Sat 90.6 % (95-100); Ionized Calcium Level - ABG 1.2 mmol/L (1.1-1.4); Methemoglobin 0.9 % (0.4-1.5); Oxygen Device ROOM AIR; Oxygen Saturation ABG 91.5; Potassium Level - ABG 4.8 mmol/L (3.5-5.0); Total Hemoglobin 12.9 g/dL (14-18)
[2020-07-18] MEDS: iohexol 300 mg/mL 100 mL Btl IV (08:51)
[2020-07-18 08:54] LABS: INR 0.88 (0.8-1.2)
[2020-07-18 08:55] LABS: Partial Thromboplastin Time 24.7 SECONDS (23.9-36.7)
[2020-07-18 08:58] LABS: Alanine Aminotransferase 22 U/L (0-41); Albumin Level 4.2 g/dL (3.5-5.2); Alkaline Phosphatase 102 IU/L (40-130); Aspartate Amino Transferase 13 U/L (0-40); Blood Urea Nitrogen 31 mg/dL (6-20); Calcium 9.1 mg/dL (8.5-10.5); Carbon Dioxide 21 mmol/L (22-29); Chloride 100 mmol/L (98-107); Creatine Phosphokinase 99 U/L (39-308); Globulin 2.4 g/dL (1.3-4.6); Glomerular Filtration Rate 104.1 mL/min (90-130); Glucose 395 mg/dL (65-115); Lipase 33 U/L (13-60); Osmolality Calculated 307 mOsm/kg (285-295); Sodium 137 mmol/L (136-145); Total Bilirubin 2.1 mg/dL (0.15-1.2); Total Protein 6.6 g/dL (6.6-8.7)
[2020-07-18 09:03] LABS: Lactic Sepsis W/Reflex 2.5 mmol/L (0.5-2.2)
[2020-07-18 10:08] LABS: Add Urine Microscopic? NO; Charge for UA Resulting for Rev
[2020-07-18 10:11] LABS: Bilirubin Urine Neg (Negative); Blood Urine Neg (Negative); Glucose Urine UA 4+ (Normal); Ketones Urine 2+ (Negative); Leukocyte Esterase Urine Negative (Negative); Nitrate Urine Negative (Negative); Protein Urine Neg (Negative); Urine Appearance Clear (CLEAR); Urine Color Straw (Yellow); Urobilinogen Urine Norm (Negative); pH Urine 5 (5-7)
[2020-07-18] MEDS: insulin regular-human 100 units/1 mL 10 UNIT IVP (10:15)
[2020-07-18 10:21] LABS: Reflex Lactate Order REFLEX LACTIC ORDERD
--- NOTE | 2020-07-18 11:13 | PC.NURSE ---
Dr Whitt recommended rectal exam for hemmoccult, patient refused exam.
[2020-07-18 11:30] LABS: Glucose Point of Care 273 mg/dL (70-110)
[2020-07-18 11:49] LABS: Lactic Acid level (Lactate) 1.7 mmol/L (0.5-2.2)
[2020-07-18] MEDS: carvedilol 3.125 mg Tablet PO (11:57)
[2020-07-18 12:58] LABS: Blood Urea Nitrogen 26 mg/dL (6-20); Calcium 8.2 mg/dL (8.5-10.5); Carbon Dioxide 19 mmol/L (22-29); Chloride 101 mmol/L (98-107); Glucose 241 mg/dL (65-115); Osmolality Calculated 293 mOsm/kg (285-295); Sodium 135 mmol/L (136-145)
[2020-07-18 12:59] LABS: Anion Gap 19.3 (5-19); Potassium 4.3 mmol/L (3.5-5.1)
== END 2020-07-18 14:56 | disposition home or self-care (01) ==
PROVIDERS: Emergency Provider Family Medicine; PCP Internal Medicine
DX: R04.0 Epistaxis (principal); J40 Bronchitis, not specified as acute or chronic; E86.0 Dehydration; Z79.82 Long term (current) use of aspirin; Z79.02 Long term (current) use of antithrombotics/antiplatelets; Z79.4 Long term (current) use of insulin; I25.10 Atherosclerotic heart disease of native coronary artery without angina pectoris; E11.9 Type 2 diabetes mellitus without complications; E78.5 Hyperlipidemia, unspecified; I10 Essential (primary) hypertension
CPT/HCPCS: 36415; 36416; 36600; 71045; 74177; 80048; 80051; 80053; 81003; 82330; 82550; 82805; 82962; 83605; 83690; 85025; 85610; 85730; 87040; 93005; 96361; 96374; 99284; J1815; J7030; Q9967

== ENCOUNTER 2020-09-15 11:58 | Outpatient (CLI) | payer OTHER, SELFPAY ==
[2020-09-15 12:59] VITALS: BP 123/82; PULSE 84; RESP 17; O2SAT 97
--- NOTE | 2020-09-15 14:14 | PC.NURSE ---
sub q injections were given in 4 spots. one given in back upper right arm, back upper left arm, LLQ, RRQ.
[2020-09-15 14:17] VITALS: BP 111/71; PULSE 84; RESP 16; TEMP 36.6; O2SAT 96
== END 2020-09-15 14:15 | disposition home or self-care (01) ==
LOC: OPS 12:02
PROVIDERS: PCP Internal Medicine; Visit Provider Internal Medicine
DX: U07.1 COVID-19 (principal)
CPT/HCPCS: 96372

== ENCOUNTER 2022-03-08 07:48 | Emergency (ER) | payer BC, SELFPAY ==
[2022-03-08 07:52] VITALS: BP 162/76; PULSE 108; RESP 20; TEMP 36.6; O2SAT 98; BMI 40.6
--- NOTE | 2022-03-08 08:05 | CT_ITS ---
WS: [id number] CT HEAD TECHNIQUE: Noncontrast CT of the head obtained from the skullbase to the vertex. CLINICAL INFORMATION: fall, pos LOC, confusion COMPARISON: None. DLP: 1141.[address] scans at [facility] use at least one of these dose optimization techniques: automated e xposure control; mA and/or kV adjustment per patient size (includes targeted exams where dose is matc hed to clinical indication); or iterative reconstruction. FINDINGS: Prominent serpiginous increased attenuation along the midline falx anteriorly appears to represent a prominent draining vein likely with hemoconcentration. No convincing evidence of intracranial hemorrh age or mass effect. Recommend short interval follow-up to demonstrate stability or resolution. No aditya or comparisons. No other suspicious intracranial findings. Normal kaur-white differentiation. Slight scalp soft tissu e edema RIGHT parietal calvarium. No fractures. Paranasal sinuses and mastoid air cells are well aera chino. CT/CT head wo con* [id number] IMPRESSION: 1. Serpiginous increased attenuation along the anterior falx appears to repres ent a prominent cortical draining vein. Recommend short interval follow-up nonc ontrast head CT to demonstrate stability or resolution. 2. Otherwise no evidence of intracranial hemorrhage or mass effect. 3. Normal kaur-white differentiation. 4. Scalp soft tissue edema overlying the RIGHT parietal calvarium. No visualiz ed fractures. 5. No other suspicious findings. Notified JEANINE Sanches at 03/08/2022 9:10 AM.
--- NOTE | 2022-03-08 08:06 | ED_ITS ---
Documented by User: JEANINE Sanches 03/08/22 12:21 HPI - Fall General: Chief Complaint: Fall Stated Complaint: fall, head injury and confusion Time Seen by Provider: 03/08/22 07:49 Source: patient Mode of arrival: ambulatory Limitations: no limitations History of Present Illness: Patient is a very nice 46-year-old male who presents to ED today for evaluation following a slip and fall and head injury. Patient states he was at work when he slipped on ice outside and fell backwards and struck the back of his head. Patient states he was unaware that he lost consciousness but coworkers told him he did for a few seconds. They reportedly called an ambulance but patient refused ambulance transportation to the ED. Instead he had a coworker drive him here. Patient was able to ambulate from the car into the ED and check himself in. Patient states he does not have much recollection in regards to the fall/incident. Patient states he is not hurting anywhere. He was ambulatory to his room without difficulty. He denies neck or back pain. Patient is not on anticoagulation. MD complaint: fall Onset (ago): hour(s) Fall from: standing Fall witnessed: yes, by bystander Place fall occurred: work Loss of consciousness: Unsure Length of LOC: second(s) Prolonged down time: no Symptoms prior to fall: none Context: tripped/slipped (slipped on ice) Location of injury: head Associated symptoms-after fall: Reports no associated symptoms, confusion and headache(s); Denies abdominal pain, chest pain, difficulty walking, lightheadedness, neck pain or vertigo Review of Systems Eyes: Denies: change in vision, blurry vision, floaters or seeing flashes Card: Denies: chest pain, palpitations, lightheadedness, syncope or pre- syncope Resp: Denies: dyspnea GI: Denies: abdominal pain, nausea or vomiting Musc: Denies: neck pain, back pain, extremity pain or joint pain Neuro: Reports: headache(s) and confusion; Denies: numbness in extremities, weakness in extremities, sensory changes, lack of coordination, difficulty walking, dizziness, vertigo, Slurred speech present or difficulty communicating thoughts PFS ED PFSH: Medical History (Updated 03/08/22 @ 12:13 by JEANINE Sanches) CAD (coronary artery disease) Diabetes mellitus Dyslipidemia Hypertension Social History Smoking and tobacco status: never smoked Physical Exam Const: COMMON NORMALS: no acute distress, patient oriented x3, no limitations and alert GENERAL APPEARANCE: cooperative NUTRITIONAL APPEARANCE: overweight ORIENTATION/CONSCIOUSNESS: Yes awake, Yes oriented to person, Yes oriented to place and Yes oriented to time HENMT: COMMON NORMALS: normocephalic HEAD & SCALP: normal to inspection and normocephalic HEAD IMAGES: 1. small abrasion/minor hematoma FACE & SINUS: normal facial exam Eye: GENERAL EYE: appearance normal, both eyes and all related structures and normal light reflex DIRECT OPHTHALMOSCOPY: Yes normal light reflex Neck/C-Spine: COMMON NORMALS: full ROM GENERAL: Yes normal visual inspection CERVICAL SPINE: Yes cervical ROM normal, No pain with cervical ROM, No Cervical spine tenderness, No step off deformity and No Paracervical muscle tenderness Resp: COMMON NORMALS: normal respiratory effort and clear to auscultation bilaterally AUSCULTATION: clear to auscultation bilaterally Cardio: COMMON NORMALS: regular rate and regular rhythm RATE: regular rate RHYTHM: regular rhythm Back/Pelvis: COMMON NORMALS: thoracic and lumbar spine normal to inspection, no thoracic nor lumbar tenderness and thoraco-lumbar ROM normal Extremity: COMMON NORMALS: normal to inspection and full ROM GENERAL: Yes normal exam except as noted Neuro: NICOLE COMA SCALE: document GCS findings Kimberly coma scale eye opening: Spontaneous Nicole coma scale verbal response: Orientated Nicole coma scale motor response: Obey commands Nicole coma scale total score: 15 COMMON NORMALS: patient oriented x3, CN's II-XII intact bilaterally, moves all extremities, no focal motor deficits, no sensory deficits noted and gait normal SENSORIUM/ORIENTATION: Yes alert, Yes oriented to person, Yes oriented to place and Yes oriented to time SPEECH: speech normal GAIT: Yes Normal gait present Skin: TRAUMA: no lacerations Course ED course: After speaking to Dr. Murray and Dr. Whitt plan will be to re- scan patient in 3 hours for confirmation of benign head CT findings. Vital Signs: Vital signs: Vital Signs Temperature 97.9 F 03/08/22 07:52 Pulse Rate 101 H 03/08/22 09:30 Respiratory Rate 19 H 03/08/22 08:07 Blood Pressure 129/95 03/08/22 11:30 Pulse Oximetry 97 03/08/22 11:30 Oxygen Delivery Me thod 03/08/22 11:30 MDM - Fall Medical Decision Making Initial head CT showing incidental finding of most likely a benign prominent draining vein however radiologist wanted to repeat head CT for definitive confirmation that this did not represent a small punctate hemorrhage given patient's history of trauma. Repeat head CT showing no changes. Will have patient speak to PCP in regards to an MRI that can be performed as an outpatient. Return to ED precautions given. Lab Data Radiology Impressions Head CT 03/08/22 11:30 IMPRESSION: 1. No evidence of intracranial hemorrhage or mass effect. 2. Previously described serpiginous increased attenuation along the falx is unchanged from earlier today likely representing a prominent cortical vein or benign venous angioma. This is likely incidental but can be followed up with MRI without and with gadolinium enhancement on an outpatient basis. 3. No acute intracranial findings. Notified JEANINE Sanches at 03/08/2022 12:11 PM. Discharge Plan Discharge Patient Disposition: Home Clinical Impression: Fall from slipping on ice Qualifiers: Encounter type: initial encounter Qualified Code(s): W00.9XXA - Unspecified fall due to ice and snow, initial encounter Hematoma of scalp Qualifiers: Encounter type: initial encounter Qualified Code(s): S00.03XA - Contusion of scalp, initial encounter Minor head injury with loss of consciousness Qualifiers: Encounter type: initial encounter Qualified Code(s): S06.9X9A - Unspecified intracranial injury with loss of consciousness of unspecified duration, initial encounter Condition: Stable Prescriptions: No Action pantoprazole 40 mg tablet,delayed release (DR/EC) 40 mg PO DAILY vitamin B complex [B Complex-Vitamin B12] Tablet 1 tab PO DAILY zinc 50 mg tablet 50 mg PO DAILY atorvastatin 40 mg tablet 40 mg PO DAILY Qty: 90 3RF carvedilol 3.125 mg tablet 3.125 mg PO BID Qty: 180 4RF Rx Instructions: must administer with a meal/food insulin lispro [Humalog U-100 Insulin] 100 unit/mL solution 30 unit SUBCUT TID Rx Instructions: Insulin pump escitalopram oxalate 10 mg tablet 10 mg PO DAILY nitroglycerin 0.4 mg tablet, sublingual 0.4 mg sublingual Q5M PRN (Reason: chest pain) Qty: 25 2RF Rx Instructions: do not exceed 3 doses per episode fenofibrate nanocrystallized 145 mg tablet 145 mg PO DAILY Mounjaro 5 mg/0.5 mL pen injector SUBCUT Rx Instructions: Once weekly Vit D PO aspirin 81 mg tablet,delayed release (DR/EC) 81 mg PO DAILY Qty: 90 3RF losartan 100 mg tablet 100 mg PO DAILY Qty: 90 3RF clopidogrel 75 mg tablet 75 mg PO DAILY Qty: 90 3RF Lantus Solostar U-100 Insulin 100 unit/mL (3 mL) insulin pen 80 unit SUBCUT QAM Jardiance 10 mg tablet 10 mg PO DAILY Vitamin C 1 tab PO DAILY gabapentin 100 mg Capsule 100 mg PO BID Discharge Orders: Discharge ED (Routine); Ordered 03/08/22 Ordered By: Mely Palmer Referrals: Kaye Mercado MD [Primary Care Provider] - Activity Restrictions/Additional Instructions: As we discussed your CT scans did not show any abnormalities related to your fall today. Radiologist did comment on an incidental finding involving a prominent draining vein. He recommended having an MRI performed on an outpatient basis to further characterize. You can speak to your primary care provider Dr. Mercado in regards to this. Return to the emergency department for worsening or severe headache, trouble walking/ambulating, trouble with speech/word slurring, visual changes, repetitive episodes of vomiting, altered mental status, or any other concerns you may have. I hope you begin to feel better soon. Coding Level of Care Code ED Associate Professor Of Archaeology for Chg Fwd Exam Comprehensive Documented by User: Telly Whitt DO 03/08/22 14:17 HPI - Fall General: Chief Complaint: Fall Stated Complaint: fall, head injury and confusion Time Seen by Provider: 03/08/22 07:49 PFS ED PFSH: Medical History (Updated 03/08/22 @ 12:13 by JEANINE Sanches) CAD (coronary artery disease) Diabetes mellitus Dyslipidemia Hypertension Social History Smoking and tobacco status: never smoked Physical Exam HENMT: HEAD IMAGES: 1. small abrasion/minor hematoma Neuro: NICOLE COMA SCALE: document GCS findings Kimberly coma scale total score: 15 Course Vital Signs: Vital signs: Vital Signs Temperature 97.9 F 03/08/22 07:52 Pulse Rate 101 H 03/08/22 09:30 Respiratory Rate 19 H 03/08/22 08:07 Blood Pressure 129/95 03/08/22 11:30 Pulse Oximetry 97 03/08/22 11:30 Oxygen Delivery Me thod 03/08/22 11:30 MDM - Fall Medical Decision Making Initial head CT showing incidental finding of most likely a benign prominent draining vein however radiologist wanted to repeat head CT for definitive co nfirmation that this did not represent a small punctate hemorrhage given patient's history of trauma. Repeat head CT showing no changes. Will have patient speak to PCP in regards to an MRI that can be performed as an outpatient. Return to ED precautions given. Chart reviewed and patient discussed with midlevel. Agree with assessment and plan. Lab Data Radiology Impressions Head CT 03/08/22 11:30 IMPRESSION: 1. No evidence of intracranial hemorrhage or mass effect. 2. Previously described serpiginous increased attenuation along the falx is unchanged from earlier today likely representing a prominent cortical vein or benign venous angioma. This is likely incidental but can be followed up with MRI without and with gadolinium enhancement on an outpatient basis. 3. No acute intracranial findings. Notified JEANINE Sanches at 03/08/2022 12:11 PM. Discharge Plan Discharge Patient Disposition: Home Clinical Impression: Fall from slipping on ice Qualifiers: Encounter type: initial encounter Qualified Code(s): W00.9XXA - Unspecified fall due to ice and snow, initial encounter Hematoma of scalp Qualifiers: Encounter type: initial encounter Qualified Code(s): S00.03XA - Contusion of scalp, initial encounter Minor head injury with loss of consciousness Qualifiers: Encounter type: initial encounter Qualified Code(s): S06.9X9A - Unspecified intracranial injury with loss of consciousness of unspecified duration, initial encounter Condition: Stable Prescriptions: No Action pantoprazole 40 mg tablet,delayed release (DR/EC) 40 mg PO DAILY vitamin B complex [B Complex-Vitamin B12] Tablet 1 tab PO DAILY zinc 50 mg tablet 50 mg PO DAILY atorvastatin 40 mg tablet 40 mg PO DAILY Qty: 90 3RF carvedilol 3.125 mg tablet 3.125 mg PO BID Qty: 180 4RF Rx Instructions: must administer with a meal/food insulin lispro [Humalog U-100 Insulin] 100 unit/mL solution 30 unit SUBCUT TID Rx Instructions: Insulin pump escitalopram oxalate 10 mg tablet 10 mg PO DAILY nitroglycerin 0.4 mg tablet, sublingual 0.4 mg sublingual Q5M PRN (Reason: chest pain) Qty: 25 2RF Rx Instructions: do not exceed 3 doses per episode fenofibrate nanocrystallized 145 mg tablet 145 mg PO DAILY Mounjaro 5 mg/0.5 mL pen injector SUBCUT Rx Instructions: Once weekly Vit D PO aspirin 81 mg tablet,delayed release (DR/EC) 81 mg PO DAILY Qty: 90 3RF losartan 100 mg tablet 100 mg PO DAILY Qty: 90 3RF clopidogrel 75 mg tablet 75 mg PO DAILY Qty: 90 3RF Lantus Solostar U-100 Insulin 100 unit/mL (3 mL) insulin pen 80 unit SUBCUT QAM Jardiance 10 mg tablet 10 mg PO DAILY Vitamin C 1 tab PO DAILY gabapentin 100 mg Capsule 100 mg PO BID Discharge Orders: Discharge ED (Routine); Ordered 03/08/22 Ordered By: Mely Palmer Referrals: Kaye Mercado MD [Primary Care Provider] - Activity Restrictions/Additional Instructions: As we discussed your CT scans did not show any abnormalities related to your fall today. Radiologist did comment on an incidental finding involving a prominent draining vein. He recommended having an MRI performed on an outpatient basis to further characterize. You can speak to your primary care provider Dr. Mercado in regards to this. Return to the emergency department for worsening or severe headache, trouble walking/ambulating, trouble with speech/word slurring, visual changes, re petitive episodes of vomiting, altered mental status, or any other concerns you may have. I hope you begin to feel better soon. Coding Level of Care Code ED Associate Professor Of Archaeology for Chg Fwd Exam Comprehensive
[2022-03-08 08:07] VITALS: BP 141/96; PULSE 105; RESP 19; O2SAT 95
[2022-03-08 09:17] VITALS: PULSE 85; O2SAT 95
[2022-03-08 09:30] VITALS: BP 125/100; PULSE 101; O2SAT 98
[2022-03-08] MEDS: acetaminophen 500 mg Tablet 1000 MG PO (09:47)
[2022-03-08 10:30] VITALS: BP 113/84; O2SAT 94
[2022-03-08 11:30] VITALS: BP 129/95; O2SAT 97
--- NOTE | 2022-03-08 11:30 | CT_ITS ---
WS: [id number] CT HEAD TECHNIQUE: Noncontrast CT of the head obtained from the skullbase to the vertex. CLINICAL INFORMATION: abnormal CT findings; repeat CT COMPARISON: None. DLP: 1162.[address] scans at [facility] use at least one of these dose optimization techniques: automated e xposure control; mA and/or kV adjustment per patient size (includes targeted exams where dose is matc hed to clinical indication); or iterative reconstruction. FINDINGS: No evidence of intracranial hemorrhage or mass effect. Ventricular system and basal cisterns are gillis nt. Previously described serpiginous increased attenuation along the falx is unchanged from earlier t faustino likely representing a prominent cortical vein or venous angioma No extra-axial fluid collections . No evidence of mass or mass effect. Normal kaur-white differentiation. Paranasal sinuses and mastoid air cells are well aerated. .Normal visualized soft tissues. CT/CT head wo con* [id number] IMPRESSION: 1. No evidence of intracranial hemorrhage or mass effect. 2. Previously described serpiginous increased attenuation along the falx is un changed from earlier today likely representing a prominent cortical vein or charisse ign venous angioma. This is likely incidental but can be followed up with MRI w ithout and with gadolinium enhancement on an outpatient basis. 3. No acute intracranial findings. Notified JEANINE Sanches at 03/08/2022 12:11 PM.
== END 2022-03-08 12:34 | disposition home or self-care (01) ==
PROVIDERS: Emergency Provider Physician Assistant; PCP Internal Medicine
DX: S00.03XA Contusion of scalp, initial encounter (principal); S09.8XXA Other specified injuries of head, initial encounter; Z79.82 Long term (current) use of aspirin; Z79.02 Long term (current) use of antithrombotics/antiplatelets; Z79.4 Long term (current) use of insulin; I25.10 Atherosclerotic heart disease of native coronary artery without angina pectoris; E11.9 Type 2 diabetes mellitus without complications; E78.5 Hyperlipidemia, unspecified; I10 Essential (primary) hypertension; W00.0XXA Fall on same level due to ice and snow, initial encounter; Y99.0 Civilian activity done for income or pay
CPT/HCPCS: 70450; 99284

== ENCOUNTER 2024-04-30 02:23 | Emergency (ER) | payer OTHER, SELFPAY ==
[2024-04-30 02:26] VITALS: BP 138/77; PULSE 76; RESP 18; TEMP 36.2; O2SAT 96; BMI 40.3
--- NOTE | 2024-04-30 02:53 | CTR_ITS ---
PROCEDURE INFORMATION: Exam: CT Head Without Contrast Exam date and time: 04/30/2024 3:09 AM Age: 48 years old Clinical indication: Pain; Headache; Other: Post op Saturday for carotid RT side; Prior surgery; Surgery date: 3-7 days post-operative TECHNIQUE: Imaging protocol: Computed tomography of the head without contrast. Radiation optimization: All CT scans at this facility use at least one of these dose optimization techniques: automated exposure control; mA and/or kV adjustment per patient size (includes targeted exams where dose is matched to clinical indication); or iterative reconstruction. COMPARISON: CT head wo con* [id number] 03/08/2022 11:27 AM RADIATION DOSE METRICS: Total DLP (mGy-cm): 1205.78 FINDINGS: Brain: No evidence of intracranial hemorrhage or mass effect. Minimal amorphous lucency in the supratentorial white matter suggests chronic microvascular disease. Cerebral ventricles: No ventriculomegaly. Paranasal sinuses: Visualized sinuses are unremarkable. No fluid levels. Mastoid air cells: Visualized mastoid air cells are well aerated. Bones: Unremarkable. No acute fracture. Soft tissues: Unremarkable. CT/CT head wo con* [id number] IMPRESSION: 1. Minimal chronic cerebral microvascular disease. 2. No evidence of acute intracranial process.
[2024-04-30 02:59] LABS: Basophils % 0.4 %; Eosinophils # 0.1 10^3/uL (0.0-0.8); Hematocrit 39.9 % (37-53); Lymphocytes # 1.6 10^3/uL (0.8-4.8); Lymphocytes % 14.2 %; Mean Corpuscular HGB Conc 33.1 g/dL (30-55); Mean Corpuscular Hemoglobin 29.4 pg (27-33); Mean Corpuscular Volume 88.9 fl (82-101); Mean Platelet Volume 9.3 fL (7.4-10.4); Monocytes # 0.9 10^3/uL (0.2-0.9); Monocytes % 7.9 %; Neutrophils # 8.51 10^3/uL (1.8-7.7); Neutrophils % 76.1 %; Nucleated Red Blood Cells % 0 %; Platelet Count 157 10^3/cmm (157-399); Red Blood Count 4.49 10^6/uL (3.85-5.65); White Blood Count 11.18 10^3/uL (3.29-11.43)
[2024-04-30 03:00] VITALS: RESP 18
[2024-04-30] MEDS: morphine 4 mg/mL SDV 1 mL IVP (03:00)
[2024-04-30] MEDS: ondansetron 2 mg/ML SDV 2 mL 4 MG IVP (03:00)
[2024-04-30 03:05] LABS: INR 0.95 (0.8-1.2)
[2024-04-30 03:06] LABS: Partial Thromboplastin Time 35.3 SECONDS (23.9-36.7)
[2024-04-30 03:10] LABS: Anion Gap 22.2 (5-19); Blood Urea Nitrogen 30 mg/dL (6-20); Carbon Dioxide 17 mmol/L (22-29); Chloride 100 mmol/L (98-107); Creatinine Clr Calc Pharmacy 88.4158; Glomerular Filtration Rate 58.4 mL/min (90-130); Glucose 161 mg/dL (65-115); Osmolality Calculated 290 mOsm/kg (285-295); Potassium 4.2 mmol/L (3.5-5.1); Sodium 135 mmol/L (136-145)
[2024-04-30 03:20] VITALS: BP 125/67; PULSE 74; RESP 15; O2SAT 92
--- NOTE | 2024-04-30 03:47 | CTR_ITS ---
PROCEDURE INFORMATION: Exam: CTA Head With Contrast, Arteriography Exam date and time: 04/30/2024 3:58 AM Age: 48 years old Clinical indication: Pain; Headache; Prior surgery; Surgery date: 3-7 days post-operative; Surgery type: S/P right carotid endarterectomy; Additional info: Headache, S/P right carotid endarterectomy TECHNIQUE: Imaging protocol: Computed tomographic angiography of the head with contrast. Exam focused on the arteries. 3D rendering (Not supervised by radiologist): MIP and/or 3D reconstructed images were created by the technologist. Radiation optimization: All CT scans at this facility use at least one of these dose optimization techniques: automated exposure control; mA and/or kV adjustment per patient size (includes targeted exams where dose is matched to clinical indication); or iterative reconstruction. Contrast material: OMNI 350; Contrast volume: 80 ml; Contrast route: INTRAVENOUS (IV); COMPARISON: CT head wo con* [id number] 04/30/2024 3:09 AM RADIATION DOSE METRICS: Total DLP (mGy-cm): 1257.49 FINDINGS: ANTERIOR CIRCULATION: Right internal carotid artery: Intracranial segment is patent with no significant stenosis. No aneurysm. There is mild calcified plaque noted. Right middle cerebral artery: No occlusion or significant stenosis. No aneurysm. Right anterior cerebral artery: No occlusion or significant stenosis. No aneurysm. Left internal carotid artery: Intracranial segment is patent with no significant stenosis. No aneurysm. There is mild calcified plaque noted. Left middle cerebral artery: No occlusion or significant stenosis. No aneurysm. Left anterior cerebral artery: No occlusion or significant stenosis. No aneurysm. POSTERIOR CIRCULATION: Right vertebral artery: No occlusion or significant stenosis. No aneurysm. There is mild calcified plaque noted. Left vertebral artery: No occlusion or significant stenosis. No aneurysm. There is mild calcified plaque noted. Basilar artery: No occlusion or significant stenosis. No aneurysm. Right posterior cerebral artery: No occlusion or significant stenosis. No aneurysm. Left posterior cerebral artery: No occlusion or significant stenosis. No aneurysm. Brain: No definite mass, mass effect, or midline shift. Cerebral ventricles: No ventriculomegaly. Bones/joints: Unremarkable. No acute fracture. Soft tissues: Unremarkable. PROCEDURE INFORMATION: Exam: CTA Neck With Contrast Exam date and time: 04/30/2024 3:58 AM Age: 48 years old Clinical indication: Pain; Headache; Prior surgery; Surgery date: 3-7 days post-operative; Surgery type: S/P right carotid endarterectomy; Additional info: Headache, S/P right carotid endarterectomy TECHNIQUE: Imaging protocol: Computed tomographic angiography of the neck with contrast. Exam focused on the cervical segments of the vasculature. 3D rendering (Not supervised by radiologist): MIP and/or 3D reconstructed images were created by the technologist. Radiation optimization: All CT scans at this facility use at least one of these dose optimization techniques: automated exposure control; mA and/or kV adjustment per patient size (includes targeted exams where dose is matched to clinical indication); or iterative reconstruction. Contrast material: OMNI 350; Contrast volume: 80 ml; Contrast route: INTRAVENOUS (IV); COMPARISON: CT head wo con* [id number] 04/30/2024 3:09 AM RADIATION DOSE METRICS: Total DLP (mGy-cm): 0.01 FINDINGS: Right common carotid artery: No stenosis. No dissection or occlusion. Right internal carotid artery: The patient is status post placement of a right carotid/internal carotid artery stent. The common carotid artery appears patent. There is marked narrowing of the stent in the region of the origin the right internal carotid artery. The remainder appears patent. Right external carotid artery: No occlusion or stenosis of the origin. Left common carotid artery: There is mild to moderate plaque causing stenosis of the distal left common carotid artery measuring less than 50%. Left internal carotid artery: There is stenosis at the origin of the left internal carotid artery measuring less than 50% secondary to soft and calcified plaque. The remainder appears patent. Left external carotid artery: No occlusion or stenosis of the origin. Right vertebral artery: No stenosis. No dissection or occlusion. Left vertebral artery: No stenosis. No dissection or occlusion. Soft tissues: There is diffuse swelling of the right sternocleidomastoid muscle measuring up to 7 x 6 cm suspicious for intramuscular hematoma. Infiltrative changes are seen throughout the right neck subcutaneous fat which are likely postoperative in nature. Bones/joints: No acute fracture. CT/CT angio headneck* [id number] IMPRESSION: No large vessel stenosis or occlusion. IMPRESSION: 1. Findings suspicious for intramuscular hematoma involving the right sternocleidomastoid muscle. 2. Status post placement of a right carotid/internal carotid artery stent. There is marked narrowing of the stent in the region of the origin the internal carotid artery. The remainder of the vessel appears patent. 3. Mild stenosis the left common carotid artery and at the origin the left internal carotid artery. REFERENCES: NASCET CRITERIA. The degree of stenosis in the cervical segment of the internal carotid artery is based on NASCET criteria. Normal is no stenosis. Mild is less than 50% stenosis. Moderate is 50-69% stenosis. Severe is 70% to 99% stenosis. Total occlusion is no detectable patent lumen.
[2024-04-30] MEDS: HYDROmorphone 0.5 MG/0.5 ML INJ IVP (04:13)
[2024-04-30] MEDS: iohexol 350 mg/mL 500 mL Btl (per mL) IV (04:17)
[2024-04-30 04:32] VITALS: BP 111/64; PULSE 90; RESP 22; O2SAT 90
--- NOTE | 2024-04-30 05:26 | W.ED.HA ---
HPI - Headache General: Chief Complaint: Headache Stated Complaint: Post Surg\Head Pain Time Seen by Provider: 04/30/24 02:48 History of Present Illness: This patient is a 48-year-old white male who presents to the emergency department with a right-sided headache. Headache came on at 1:00 this morning. He has not had any associated nausea or vomiting. No fever. Patient recently had a right carotid endarterectomy. Related Data Home Medications ?Medication ?Instructions ?Recorded ?Confirmed gabapentin 100 mg capsule 100 mg PO BID see pharmacy comments 08/27/19 08/02/22 pantoprazole 40 mg tablet,delayed 40 mg PO DAILY 11/02/19 08/02/22 release Vitamin C 1 tab PO DAILY 07/18/20 08/02/22 empagliflozin 10 mg tablet 10 mg PO DAILY 07/18/20 08/02/22 (Jardiance) insulin glargine 100 unit/mL (3 80 unit SUBCUT QAM 07/18/20 08/02/22 mL) subcutaneous pen (Lantus Solostar U-100 Insulin) vitamin B complex (B 1 tab PO DAILY 02/16/21 08/02/22 Complex-Vitamin B12 tablet) zinc 50 mg tablet 50 mg PO DAILY 02/16/21 08/02/22 escitalopram oxalate 10 mg tablet 10 mg PO DAILY 08/21/21 08/02/22 insulin lispro 100 unit/mL 30 unit SUBCUT TID 08/21/21 08/02/22 subcutaneous solution (Humalog U-100 Insulin) Vit D PO 02/26/22 08/02/22 fenofibrate nanocrystallized 145 145 mg PO DAILY 02/26/22 08/02/22 mg tablet tirzepatide 5 mg/0.5 mL mg SUBCUT 02/26/22 08/02/22 subcutaneous pen injector (Shara) Previous Rx's ?Medication ?Instructions ?Recorded atorvastatin 40 mg tablet 40 mg PO DAILY #90 tabs 02/16/21 nitroglycerin 0.4 mg sublingual 0.4 mg sublingual Q5M PRN chest 08/21/21 tablet pain #25 tabs aspirin 81 mg tablet,delayed 81 mg PO DAILY #90 tabs 02/13/22 release losartan 100 mg tablet 100 mg PO DAILY #90 tabs 02/13/22 carvedilol 3.125 mg tablet 3.125 mg PO BID #180 tabs 03/21/22 clopidogrel 75 mg tablet 75 mg PO DAILY #90 tabs 02/07/23 Allergies Allergy/AdvReac Type Severity Reaction Status Date / Time metoprolol AdvReac Unknown diarrhea Verified 08/02/22 15:01 Review of Systems General: Reports: 10 or more systems reviewed and unremarkable except in HPI and below Neuro: Reports: headache(s) PFSH ED PFSH: Medical History (Updated 04/30/24 @ 05:25 by Kwame Arredondo MD) Dyslipidemia CAD (coronary artery disease) Hypertension Diabetes mellitus Social History Smoking and tobacco/nicotine status: never used tobacco/nicotine Physical Exam Const: COMMON NORMALS: patient oriented x3 and no limitations GENERAL APPEARANCE: cooperative and comfortable HENMT: COMMON NORMALS: normocephalic, atraumatic, Normal nasal mucous membranes and turbinates present, moist oral mucous membranes and oropharynx normal HEAD & SCALP: normal to inspection, normocephalic and atraumatic FACE & SINUS: normal facial exam NOSE: Normal nasal mucous membranes and turbinates present Eye: COMMON NORMALS: Equal, round and reactive pupils present, EOMs intact bilaterally and conjunctivae normal GENERAL EYE: appearance normal, both eyes and all related structures CONJUNCTIVA: Yes conjunctivae normal PUPIL: Yes Equal, round and reactive pupils present Neck/C-Spine: COMMON NORMALS: supple OTHER: Surgical incision over the right anterior neck with moderate swelling. Chest: COMMONS NORMALS: normal inspection of the chest Resp: COMMON NORMALS: normal respiratory effort and clear to auscultation bilaterally AUSCULTATION: clear to auscultation bilaterally Cardio: COMMON NORMALS: regular rate, regular rhythm, No gallops present (Cardio), No murmurs present (Cardio) and No rub (Cardio) RATE: regular rate RHYTHM: regular rhythm GI: COMMON NORMALS: Normal to inspection, nondistended, normoactive bowel sounds present, Soft to palpation and non-tender AUSCULTATION: Yes normoactive bowel sounds PALPATION: Yes Soft to palpation : COMMON NORMALS: Yes no CVA tenderness BLADDER/KIDNEY EXAM: Yes no CVA tenderness Back/Pelvis: COMMON NORMALS: no CVA tenderness and thoracic and lumbar spine normal to inspection Extremity: COMMON NORMALS: normal to inspection Neuro: COMMON NORMALS: patient oriented x3 and CN's II-XII intact bilaterally Psych: COMMON NORMALS: mental status grossly normal, Normal thought process present and cooperative THOUGHT PROCESS: Normal thought process present Skin: COMMON NORMALS: no rashes or lesions noted, turgor normal and no jaundice GENERAL SKIN EXAM: no rashes or lesions noted and turgor normal Course Vital Signs: Vital signs: Vital Signs Temperature 97.1 F L 04/30/24 02:26 Pulse Rate 90 04/30/24 04:32 Respiratory Rate 22 H 04/30/24 04:32 Blood Pressure 111/64 04/30/24 04:32 Pulse Oximetry 90 04/30/24 04:32 Oxygen Delivery Me thod Room Air 04/30/24 04:32 MDM - Headache Medical Decision Making CBC and BMP were normal. Coags normal. Plain head CT was read by the radiologist as small vessel ischemic disease. CT angiogram of the head and neck was read by the radiologist. They note right sided intramuscular hematoma of the sternocleidomastoid muscle. No occlusions or dissections. Patient was given morphine and Dilaudid for his pain. Continues to have a headache but significantly improved. He was discharged in stable condition. He does have a prescription for hydrocodone which she can use as needed. I recommended he follow-up with his primary care physician and/or surgeon for ongoing management. Lab Data 04/30/24 02:44 04/30/24 02:[address] 04/30/24 02:53 IMPRESSION: 1. Minimal chronic cerebral microvascular disease. 2. No evidence of acute intracranial process. Head/Neck CTA 04/30/24 03:47 IMPRESSION: No large vessel stenosis or occlusion. IMPRESSION: 1. Findings suspicious for intramuscular hematoma involving the right sternocleidomastoid muscle. 2. Status post placement of a right carotid/internal carotid artery stent. There is marked narrowing of the stent in the region of the origin the internal carotid artery. The remainder of the vessel appears patent. 3. Mild stenosis the left common carotid artery and at the origin the left internal carotid artery. REFERENCES: NASCET CRITERIA. The degree of stenosis in the cervical segment of the internal carotid artery is based on NASCET criteria. Normal is no stenosis. Mild is less than 50% stenosis. Moderate is 50-69% stenosis. Severe is 70% to 99% stenosis. Total occlusion is no detectable patent lumen. Laboratory Results WBC 11.18 10^3/uL (3.29-11.43) 04/30/24 02:44 RBC 4.49 10^6/uL (3.85-5.65) 04/30/24 02:44 Hgb 13.20 g/dL (11.27-16.99) 04/30/24 02:44 Hct 39.9 % (37-53) 04/30/24 02:44 MCV 88.9 fl (82-101) 04/30/24 02:44 MCH 29.4 pg (27-33) 04/30/24 02:44 MCHC 33.1 g/dL (30-55) 04/30/24 02:44 RDW 13.0 % (12.1-15.1) 04/30/24 02:44 Plt Count 157 10^3/cmm (157-399) 04/30/24 02:44 MPV 9.3 fL (7.4-10.4) 04/30/24 02:44 Neut % (Auto) 76.1 % 04/30/24 02:44 Lymph % (Auto) 14.2 % 04/30/24 02:44 Harding % (Auto) 7.9 % 04/30/24 02:44 Eos % (Auto) 1.0 % 04/30/24 02:44 Baso % (Auto) 0.4 % 04/30/24 02:44 Neut # (Auto) 8.51 10^3/uL (1.8-7.7) H 04/30/24 02:44 Lymph # (Auto) 1.6 10^3/uL (0.8-4.8) 04/30/24 02:44 Harding # (Auto) 0.9 10^3/uL (0.2-0.9) 04/30/24 02:44 Eos # (Auto) 0.1 10^3/uL (0.0-0.8) 04/30/24 02:44 Baso # (Auto) 0.0 10^3/uL (0.0-0.1) 04/30/24 02:44 Nucleated RBC % (auto) 0 % 04/30/24 02:44 Nucleated RBCs # 0.0 /100WBC 04/30/24 02:44 PT 13.40 SECONDS (12.1-14.9) 04/30/24 02:44 INR 0.95 (0.8-1.2) 04/30/24 02:44 APTT 35.3 SECONDS (23.9-36.7) 04/30/24 02:44 Sodium 135 mmol/L (136-145) L 04/30/24 02:44 Potassium 4.2 mmol/L (3.5-5.1) 04/30/24 02:44 Chloride 100 mmol/L (98-107) 04/30/24 02:44 Carbon Dioxide 17 mmol/L (22-29) L 04/30/24 02:44 Anion Gap 22.2 (5-19) H 04/30/24 02:44 BUN 30 mg/dL (6-20) H 04/30/24 02:44 Creatinine 1.3 mg/dL (0.7-1.2) H 04/30/24 02:44 GFR Calculation 58.4 mL/min (90-130) L 04/30/24 02:44 Glucose 161 mg/dL (65-115) H 04/30/24 02:44 Calculated Osmolality 290 mOsm/kg (285-295) 04/30/24 02:44 Calcium 9.0 mg/dL (8.5-10.5) 04/30/24 02:44 All radiology interpretation(s) finalized by discharge Discharge Plan Discharge Patient Disposition: Home Clinical Impression: Headache Qualifiers: Headache type: unspecified Headache chronicity pattern: acute headache Intractability: not intractable Qualified Code(s): R51.9 - Headache, unspecified Condition: Stable Prescriptions: No Action pantoprazole 40 mg tablet,delayed release (DR/EC) 40 mg PO DAILY vitamin B complex [B Complex-Vitamin B12] Tablet 1 tab PO DAILY zinc 50 mg tablet 50 mg PO DAILY atorvastatin 40 mg tablet 40 mg PO DAILY Qty: 90 3RF insulin lispro [Humalog U-100 Insulin] 100 unit/mL solution 30 unit SUBCUT TID Rx Instructions: Insulin pump escitalopram oxalate 10 mg tablet 10 mg PO DAILY nitroglycerin 0.4 mg tablet, sublingual 0.4 mg sublingual Q5M PRN (Reason: chest pain) Qty: 25 2RF Rx Instructions: do not exceed 3 doses per episode fenofibrate nanocrystallized 145 mg tablet 145 mg PO DAILY Mounjaro 5 mg/0.5 mL pen injector SUBCUT Rx Instructions: Once weekly Vit D PO aspirin 81 mg tablet,delayed release (DR/EC) 81 mg PO DAILY Qty: 90 3RF losartan 100 mg tablet 100 mg PO DAILY Qty: 90 3RF carvedilol 3.125 mg tablet 3.125 mg PO BID Qty: 180 4RF Rx Instructions: must administer with a meal/food clopidogrel 75 mg tablet 75 mg PO DAILY Qty: 90 3RF Lantus Solostar U-100 Insulin 100 unit/mL (3 mL) insulin pen 80 unit SUBCUT QAM Jardiance 10 mg tablet 10 mg PO DAILY Vitamin C 1 tab PO DAILY gabapentin 100 mg Capsule 100 mg PO BID Discharge Orders: Discharge ED (Routine); Ordered 04/30/24 Ordered By: Kwame Arredondo Referrals: Kaye Mercado MD [Primary Care Provider] - Patient Instructions: Acute Headache (DC), Opioid Safety, Pain Management Activity Restrictions/Additional Instructions: Follow-up with primary care provider and/or surgeon for ongoing management. 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
[2024-04-30 05:59] VITALS: BP 114/59; PULSE 82; O2SAT 90
== END 2024-04-30 05:44 | disposition home or self-care (01) ==
PROVIDERS: Emergency Provider Emergency Medicine; PCP Internal Medicine
DX: R51.9 Headache, unspecified (principal); Z79.82 Long term (current) use of aspirin; Z79.02 Long term (current) use of antithrombotics/antiplatelets; E78.5 Hyperlipidemia, unspecified; I25.10 Atherosclerotic heart disease of native coronary artery without angina pectoris; E11.9 Type 2 diabetes mellitus without complications; I10 Essential (primary) hypertension
CPT/HCPCS: 70450; 70496; 70498; 80048; 85025; 85610; 85730; 96374; 96375; 99285; J1171; J2270; J2405

== ENCOUNTER 2024-08-31 11:38 | Outpatient (CLI) | payer OTHER, SELFPAY | END 2024-08-31 11:39 | disposition home or self-care (01) | LOC: SLEEP 11:42 | PROVIDERS: PCP Internal Medicine; Referring Provider Internal Medicine; Visit Provider Internal Medicine Pulmonary Disease | DX: G47.33 Obstructive sleep apnea (adult) (pediatric) (principal) | CPT/HCPCS: G0399 ==